=== PATIENT | female | born 1940 | race Caucasian/White ===

== ENCOUNTER 2017-02-03 05:35 | Inpatient (IN) ==
[2017-01-27 13:45] LABS: Basophils % 0.6 % (0.0-0.8); Eosinophils # 0.3 10*3/uL (0.0-0.87); Eosinophils % 3.8 % (0.00-10.9); Hematocrit 34.8 VOL% (35.7-47.0); Hemoglobin 11.1 GM/DL (12.0-16.0); Immature Granulocytes % 0.4 %; Immature Granulocytes Absolute 0.03 #; Lymphocytes # 1.2 10*3/uL (1.4-4.0); Mean Corpuscular HGB Conc 31.9 GM/DL (32-36); Mean Corpuscular Hemoglobin 28 PG (27-34); Mean Corpuscular Volume 86.8 FL (87-102); Mean Platelet Volume 10.3 FL (9.6-12.0); Monocytes # 0.6 10*3/uL (0.11-0.8); Neutrophils % 70.2 % (38.7-73.9); Platelet Count 237 T/CUMM (130-400); Red Blood Count 4.01 MC/CUMM (3.8-5.5); Red Cell Distribution Width 14.2 % (9.3-17.3); White Blood Count 7.1 T/CUMM (4-12)
[2017-01-27 13:52] LABS: PT Patient Result 10.3 SECS; Partial Thromboplastin Time 25.9 SECS (0-40)
[2017-01-27 13:56] LABS: Apearance,Urine Slightly Hazy (Clear); Bacteria,Urine Moderate /HPF (Few); Bilirubin,Urine Negative (Negative); Blood, Urine Negative (Negative); Glucose,Urine (UA) 50 mg/dL (Negative); Ketones,Urine Negative (Negative); Nitrite,Urine Negative (Negative); Protein,Urine 100 MG/DL; RBC,Urine <1 /HPF (0-4); Squamous Epithelial Cell,Urine Occasional /HPF (0-10); Urine Color Yellow (Yellow); Urine Specific Gravity 1.008 (1.001-1.035); Urine Urobilinogen < 2.0 EU/DL (0.2-1.0); WBC,Urine 3 /HPF (0-6)
--- NOTE | 2017-01-27 14:02 | XRay Report ---
XR chest 2V Indication: Respiratory preoperative evaluation Comparison: 07 March 2014 Findings: The heart and mediastinum are normal in size and configuration. The pulmonary vascularity is normal in caliber. No lung infiltrates, effusions, pneumothorax or other abnormality is demonstrated. Impression: No cardiopulmonary disease. PROCEDURE INTERPRETED AT [facility] DEPARTMENT OF RADIOLOGY Final Report Signed by: Dr. Rich Tesfaye
[2017-01-27 14:15] LABS: Albumin 3.4 G/DL (3.4-5.0); Bilirubin,Total 0.4 MG/DL (0.2-1.0); Calcium 9.2 MG/DL (8.5-10.1); Potassium 4.3 MMOL/L (3.5-5.1); Total Protein 6.6 G/DL (6.4-8.3)
[2017-02-03] MEDS ORDERED: SODIUM CHLORIDE 0.9% 100 ML IV ONE (06:00)
[2017-02-03] MEDS ORDERED: ceFAZolin 1,000 MG VIAL ONE (06:00)
[2017-02-03] MEDS ORDERED: VANCOMYCIN 1,000 MG VIAL ONE (06:00)
[2017-02-03] MEDS ORDERED: VANCOMYCIN INJ 1,000 MG in SODIUM CHLORIDE 0.9% 250 ML IV ONE (06:00)
[2017-02-03] MEDS ORDERED: TRANEXAMIC ACID 1,000 MG/10 ML VIAL IV ONE (06:29)
[2017-02-03] MEDS ORDERED: SCOPOLAMINE 1.5 MG PATCH TRANSDERM ONE (06:45)
[2017-02-03] MEDS ORDERED: SCOPOLAMINE 1.5 MG PATCH TRANSDERM STA (06:55)
[2017-02-03] MEDS: LACTATED RINGERS 1,000 ML IV SCH ×2 (06:55→08:31)
--- NOTE | 2017-02-03 07:07 | History and Physical Update ---
History and Physical Update - History and Physical H&P was reviewed, the patient examined and there: are no changes in the patients condition since last H&P was completed.
[2017-02-03] MEDS ORDERED: TEMAZEPAM 7.5 MG CAPSULE PO PRN (07:10)
[2017-02-03] MEDS ORDERED: NALOXONE 0.4 MG/ML VIAL IV PRN (07:10)
[2017-02-03] MEDS ORDERED: LACTULOSE 20 GM/30 ML UDCUP PO PRN (07:10)
[2017-02-03] MEDS ORDERED: BISACODYL 10 MG SUPP RECTAL PRN (07:10)
[2017-02-03] MEDS ORDERED: HYDROmorphone 2 MG/1 ML VIAL IV PRN (07:10)
[2017-02-03] MEDS ORDERED: PROMETHAZINE 25 MG/1 ML VIAL IM PRN (07:10)
[2017-02-03] MEDS ORDERED: diphenhydrAMINE CAP 25 MG CAPSULE PO PRN (07:10)
[2017-02-03] MEDS ORDERED: MAGNESIUM HYDROXIDE SUSP 30 ML UDCUP PO PRN (07:10)
[2017-02-03] MEDS ORDERED: GLUCAGON 1 MG VIAL IM PRN (07:14)
[2017-02-03] MEDS ORDERED: DEXTROSE 50% 25 GM/50 ML VIAL IV PRN (07:14)
[2017-02-03] MEDS ORDERED: ROPIVACAINE 0.5% 30 ML VIAL ONE (08:42)
[2017-02-03] MEDS ORDERED: PROPOFOL 200 MG/20 ML VIAL IV ONE (08:49)
[2017-02-03] MEDS ORDERED: MIDAZOLAM 2 MG/2 ML VIAL ONE (08:49)
[2017-02-03] MEDS ORDERED: NEOSTIGMINE 10 MG/10 ML VIAL ONE (08:49)
[2017-02-03] MEDS ORDERED: LACTATED RINGERS 1,000 ML IV ONE (08:49)
[2017-02-03] MEDS ORDERED: HYDROmorphone 2 MG/1 ML VIAL ONE (08:49)
[2017-02-03] MEDS ORDERED: ACETAMINOPHEN 1,000 MG/100 ML VIAL IV ONE (08:49)
[2017-02-03] MEDS ORDERED: SEVOFLURANE 1 UNIT/15 MINUTE INH ONE (08:49)
[2017-02-03] MEDS ORDERED: GLYCOPYRROLATE 0.4 MG/2 ML VIAL ONE (08:49)
[2017-02-03] MEDS ORDERED: ROCURONIUM 100 MG/10 ML VIAL IV ONE (08:50)
[2017-02-03] MEDS ORDERED: HYDROmorphone PCA 30 MG/30 ML SYRINGE IV ONE (09:26)
[2017-02-03] MEDS: HYDROmorphone PCA 30 MG/30 ML SYRINGE IV SCH (09:31)
--- NOTE | 2017-02-03 09:43 | XRay Report ---
XR knee 2V LT Indication: Joint replacement (left knee) Comparison: Left knee x-ray December 24, 2007 Technique: Frontal and lateral views of the left knee Findings: Status post total left knee arthroplasty. No evidence of immediate hardware failure. Superficial skin lul and surgical drain/s overlie the knee. Subcutaneous and joint space air noted which is likely postoperative. IMPRESSION: Status post total left knee arthroplasty. PROCEDURE INTERPRETED AT [facility] DEPARTMENT OF RADIOLOGY Final Report Signed by: Dr Petar Bunn
[2017-02-03] MEDS: DOCUSATE SODIUM 100 MG CAPSULE PO SCH ×3 (10:12→21:00)
[2017-02-03] MEDS: INSULIN REGULAR 100 UNIT/ML SUBCUT SCH ×6 (10:12→21:54)
[2017-02-03] MEDS: METHENAMINE HIPPURATE 1 GM TABLET PO SCH ×3 (10:13→21:00)
[2017-02-03] MEDS: INSULIN NPH 100 UNIT/ML SUBCUT SCH ×2 (10:13→18:03)
[2017-02-03] MEDS: FUROSEMIDE 20 MG TABLET PO SCH (10:13)
[2017-02-03] MEDS: FOLIC ACID 1 MG TABLET PO SCH (10:13)
[2017-02-03] MEDS: ceFAZolin 2,000 MG in PREMIX 1 EACH IV SCH ×2 (11:33→20:51)
--- NOTE | 2017-02-03 12:00 | Anesthesia Post-Op ---
Anesthesia Post OP - Post Ansesthetic Evaluation Patient seen in post op: Yes Resp: within normal limits CV: within normal limits Mental: within normal limits Temp: within normal limits Iomd-Ta-Gjaqurmdd: within normal limits Nausea and Vomiting: within normal limits Pain: within normal limits
--- NOTE | 2017-02-03 14:05 | Orthopedic Progress Note ---
Orthopedics - Subjective Interval history: Comfortable neurovascular intact discussed up in a.m. Exam - Constitutional Vitals: Period Temp Pulse Resp BP Sys/Mccann Pulse Ox Last 24 Hr 97.4 F-99.1 F 60-75 13-20 123-144/46-79 94-100 Results - Labs CBC & BMP: 01/27/17 13:32 01/27/17 13:32
--- NOTE | 2017-02-03 15:18 | Cardiology Consult Note ---
Lashawn De La Paz April RN, am scribing for, and in the presence of, Liliya Leonard DO 15 :15. Assessment and Plan - Time spent with patient Time spent with patient: Greater than 30 minutes (Due to assessment, planning, documentation, medication review) (1) Status post total left knee replacement Status: Acute Assessment and plan: She has a left total knee replacement February 03, [address] Parker Hernandez. Current Visit: Yes (2) Diabetes mellitus Status: Chronic Current Visit: Yes Qualifiers: Diabetes mellitus type: type 2 Diabetes mellitus complication detail: with chronic kidney disease Chronic kidney disease stage: stage 2 (mild) (3) Chronic kidney disease Status: Chronic Current Visit: Yes (4) Hypertension Status: Chronic Current Visit: Yes (5) GERD (gastroesophageal reflux disease) Status: Chronic Current Visit: Yes Qualifiers: Esophagitis presence: without esophagitis Qualified Code(s): K21.9 - Gastro -esophageal reflux disease without esophagitis (6) Dyslipidemia Status: Chronic Current Visit: Yes (7) COPD (chronic obstructive pulmonary disease) Status: Chronic Current Visit: Yes (8) Heart failure with preserved left ventricular function (HFpEF) Status: Acute Current Visit: Yes History of Present Illness - Data of Consult Patient: known to practice within the last 3 years Consult date: 02/03/17 Requesting Physician: Robbie Canales Jr. Primary care physician: Teo Gonzales - Consult Narrative Reason for consult: follow postop History of present illness: Equity Structurer: Dr. Mensah PCP: Dr. Goznales Ms. Tejeda is a 76 year old female with history of diabetes, chronic kidney disease, hypertension, GERD, COPD, and dyslipidemia. Dr. Mensah saw her in the office on December 27. She had a stress test Dr. Mensah's office January 16, 2017 was read as probably normal perfusion study and low risk for cardiovascular events. Echocardiogram done December 31, 2016 with ejection fraction of 55%. She was low risk for shayy-/post operative cardiac events. Patient has no known coronary artery disease cardiac dysrhythmia has never been admitted for heart failure signs or symptoms. She was admitted February 03 for left total knee replacement with Dr. Parker Hernandez. We have been asked see her postoperatively. I saw and examined with Hardin post total knee replacement. She denies any chest pain or shortness of breath. Vital signs have been stable. Home medicines have been restarted. She seems to be doing well postoperatively. We will follow from a distance. If there are issues please notify us in the interim I will continue her home medications. I will sign off at this point please call if needed. CC: Robbie Canales Jr., MD - Home Medications and Allergies Home Medications: Home Medications Medication Instructions Recorded Confirmed Type Atorvastatin [Lipitor] 10 mg PO BEDTIME 04/06/15 02/03/17 History Carvedilol [Coreg] 12.5 mg PO BID 04/06/15 02/03/17 History Folic Acid Tab 1 mg PO DAILY 04/06/15 02/03/17 History Furosemide Tab [Lasix Tab] 20 mg PO DAILY 04/06/15 02/03/17 History Gabapentin 300 mg PO BEDTIME 04/06/15 02/03/17 History Insulin NPH [HumuLIN N] 33 unit SUBCUT QPM 04/06/15 02/03/17 History Insulin NPH [HumuLIN N] 50 unit SUBCUT QAM 04/06/15 02/03/17 History Insulin Regular [HumuLIN R] 15 unit SUBCUT BID 04/06/15 02/03/17 History amLODIPine [Norvasc] 10 mg PO BEDTIME 04/06/15 02/03/17 History Esomeprazole Magnesium 40 mg PO DAILY 02/03/17 02/03/17 History [Esomeprazole] Methenamine Hippurate 1 gm PO BID 02/03/17 02/03/17 History Allergies/Adverse Reactions: Allergies Allergy/AdvReac Type Severity Reaction Status Date / Time aspirin Allergy Intermediate SWELLING Verified 01/27/17 13:02 IN HIGHER DOSAGES meperidine [From Demerol] AdvReac Mild Nausea Verified 01/27/17 13:02 morphine AdvReac Mild Nausea Verified 01/27/17 13:02 - Constitutional Constitutional: Present: as per HPI - EENT Eyes: Absent: blurry vision, loss of vision Ears: Absent: decreased hearing, ear pain Nose, mouth and throat: Absent: dysphagia, epistaxis, headache(s) - Cardiovascular Cardiovascular: Absent: chest pain at rest, chest pain with activity, dyspnea, dyspnea on exertion, radiating jaw, neck or arm pain, lightheadedness, orthopnea , palpitations - Respiratory Respiratory: Absent: cough, dyspnea, hemoptysis, dyspnea on exertion, wheezing - Gastrointestinal Gastrointestinal: Absent: abdominal pain, constipation, diarrhea, hematemesis, hematochezia, melena, nausea, vomiting - Genitourinary Genitourinary: Absent: dysuria, hematuria - Musculoskeletal Musculoskeletal: Present: limited range of motion, muscle weakness - Neurological Neurological: Present: abnormal gait. Absent: confusion, dizziness, headache(s) , syncope - Psychiatric Psychiatric: Absent: anxiety, depression - Endocrine Endocrine: Present: fatigue - Hematologic/Lymphatic Hematologic/Lymphatic: Absent: easy bleeding, easy bruising Medical,Surgical,& Family Hx - Medical History Cardio: History of: Hypertension Neurology: History of: Peripheral Neuropathy HEENT: History of: Eye Problem (cataract surg), Dental Problems (FULL SET DENTURES) Endocrine: History of: Diabetes Mellitus (IDDM), Dyslipidemia Rheumatology: History of;: Rheumatological Problems (arthritis) Respiratory: History of: COPD Renal: History of: Renal Problems (chronic renal disease-DR. BROOKS LOPEZ BETTER NOW) Gastrointestinal: History of: Diverticulitis/ Diverticulosis, GERD Musculoskeletal: History of: Back/Neck Problems (stimulator in back; HX SEEING DR. ZHENG), Musculoskeletal Problems (OA) Other: History of: Anesthesia Reactions (nauseated) - Surgical History HEENT Surgeries: Surgical HX of: Eye Surgery (RT/LT) Patient denies: Tonsilectomy & Adenoidectomy Abdominal Surgeries: Surgical HX of: Cholecystectomy, Colonoscopy, EGD Reproductive Surgeries: Surgical HX of;: Hysterectomy, Tubal Ligation (RUPTURED CYST RT; LT) Orthopedic Surgeries: Surgical HX of;: Implanted Devices (SCS), Orthopedic Surgery (right knee, ankle fusion LT), Total Knee Replacement (right; 02/03/17 LT ) - Family History Family History: Reports;: Family Cancer (sister) - Social History Smoking Status: Never smoker Have you smoked in the last 12 months: No Frequency of Alcohol Use: None Type of Drug Use: Unknown Marital Status: Lives With:: Spouse Functional capacity: independent ambulation Physical Examination Vital Signs Temp Pulse Resp BP Pulse Ox 97.4 F L 70 20 143/79 97 02/03/17 06:28 02/03/17 06:28 02/03/17 06:28 02/03/17 06:28 02/03/17 06:28 General: Present: Appears Well, No Apparent Distress, Other (She is obese with BMI of 37 kg/m2) HEENT: Present: PERRL, Mucus Membranes Moist Neck: Present: Supple Neck, Midline Trachea, No Bruit Cardiac: Present: Reg Rate and Rhythm, No Murmur Lungs: Present: Normal Breath Sounds, No Wheeze, Rales, Rhonchi Neuro: Absent: Resting Tremor, Essential Tremor Abdomen: Present: Soft, Active Bowel Sounds, Non-Tender. Absent: Distended Skin: Absent: Rash, Suspicious Lesions Musculoskeletal: Present: Decreased Range of Motion, Pain in Joint Gait: Present: Poor Gait Extremities: Present: No Edema, Normal Upper Extr. Pulses, Normal Lower Extr. Pulses, Other (Dressing to left lower extremity) Result/EKG - Labs CBC & BMP: 01/27/17 13:32 01/27/17 13:32 Labs: Laboratory Results - last 24 hr 02/03/17 02/03/17 02/03/17 06:22 06:22 10:40 POC Glucose 143 H 158 H Blood Type A POSITIVE Antibody Screen Negative Aisha De La Paz Shea, , personally performed the services described in this documentation, ascribed by Joanna Hardin RN in my presence, and it is both accurate and complete .
[2017-02-03] MEDS: FONDAPARINUX 2.5 MG/0.5 ML SYRINGE SUBCUT SCH (17:07)
[2017-02-03] MEDS: ONDANSETRON 4 MG/2 ML VIAL IV PRN ×2 (17:31→21:11)
[2017-02-03] MEDS: GABAPENTIN 300 MG CAPSULE PO SCH ×2 (20:51→21:00)
[2017-02-03] MEDS: CARVEDILOL 12.5 MG TABLET PO SCH ×2 (20:51→21:00)
[2017-02-03] MEDS: amLODIPine 10 MG TABLET PO SCH ×2 (20:51→21:00)
[2017-02-03] MEDS: ATORVASTATIN 10 MG TABLET PO SCH ×2 (20:51→21:00)
--- NOTE | 2017-02-03 21:23 | Operative Note ---
DATE: 02/03/2017 PREOPERATIVE DIAGNOSIS: OSTEOARTHRITIS, LEFT KNEE. POSTOPERATIVE DIAGNOSIS: OSTEOARTHRITIS, LEFT KNEE. OPERATIVE PROCEDURE: Left total knee ([place]). SURGEON: Robbie Canales Jr., MD. ENGAGEMENT EXECUTIVE: Dr. Toribio. ANESTHESIA: General. INDICATIONS: The patient is a 76-year-old white female with severe osteoarthritis to her left knee. She has previously had a right total knee and done very well. Her pain is severe limiting her abili ty to ambulate and perform activities of daily living. She is felt to be a candidate for total knee, presented today for elective procedure. OPERATIVE PROCEDURE: The patient was taken to the operating room under general anesthetic, positione d in the supine position. The left leg was positioned, prepped and draped in usual sterile manner. The limb was elevated, exsanguinated, and the tourniquet inflated to 300 mmHg. She received Ancef an d Vancomycin preoperatively. A midline incision was made over the anterior aspect of the left knee. Sharp dissection was carried down through skin and subcutaneous tissue. A median parapatellar arthr otomy performed. Intramedullary alignment guides were used to make the appropriate cuts about the di stal femur and proximal tibia. The femur was sized to an 8 and the tibia to a 9. A 7-mm fixed beari ng spacer selected, the PCL retained. The patella was resurfaced with a 35 button. After removal of all the trial components, all three components were cemented into place. After the cement hardened, the wound was closed over two 1/8-inch Hemovac drains after a thorough irrigation. The wound was cl osed in standard fashion using #1 Vicryl for the arthrotomy, 2-0 Vicryl for the subcutaneous layer an d lul for skin. Tourniquet was deflated during wound closure at 40 minutes. Sterile dressing wa s applied. She was transported to recovery room in stable condition. CC:
[2017-02-04] MEDS: LACTATED RINGERS 1,000 ML IV SCH ×2 (03:13→23:06)
[2017-02-04 07:19] LABS: Basophils % 0.2 % (0.0-0.8); Hematocrit 31.6 VOL% (35.7-47.0); Immature Granulocytes % 0.4 %; Immature Granulocytes Absolute 0.05 #; Lymphocytes # 0.7 10*3/uL (1.4-4.0); Mean Corpuscular HGB Conc 31.6 GM/DL (32-36); Mean Corpuscular Hemoglobin 28 PG (27-34); Mean Corpuscular Volume 88.3 FL (87-102); Mean Platelet Volume 11.2 FL (9.6-12.0); Monocytes # 0.6 10*3/uL (0.11-0.8); Monocytes % 5.4 % (1.7-12.7); Neutrophils # 9.8 10*3/uL (1.4-7.4); Platelet Count 178 T/CUMM (130-400); Red Blood Count 3.58 MC/CUMM (3.8-5.5); Red Cell Distribution Width 14.4 % (9.3-17.3); White Blood Count 11.2 T/CUMM (4-12)
[2017-02-04 07:37] LABS: Calcium 8.4 MG/DL (8.5-10.1); Osmolality,Calculated 302.1 MOS/KG (273-304); Potassium 4.3 MMOL/L (3.5-5.1)
--- NOTE | 2017-02-04 08:06 | Orthopedic Progress Note ---
Orthopedics - Subjective Interval history: Pain control good drain removed H&H stable. Ready to start PT. Discharge plan Exam - Constitutional Vitals: Period Temp Pulse Resp BP Sys/Mccann Pulse Ox Last 24 Hr 97.3 F-99.1 F 60-99 13-20 123-162/46-85 92-100 Results - Labs CBC & BMP: 02/04/17 07:00 02/04/17 07:00
[2017-02-04] MEDS: INSULIN REGULAR 100 UNIT/ML SUBCUT SCH ×6 (08:30→20:42)
[2017-02-04] MEDS: INSULIN NPH 100 UNIT/ML SUBCUT SCH ×2 (08:41→20:41)
[2017-02-04] MEDS: DOCUSATE SODIUM 100 MG CAPSULE PO SCH ×2 (08:44→20:41)
[2017-02-04] MEDS: FOLIC ACID 1 MG TABLET PO SCH (08:46)
[2017-02-04] MEDS: METHENAMINE HIPPURATE 1 GM TABLET PO SCH ×2 (08:46→20:41)
[2017-02-04] MEDS: FUROSEMIDE 20 MG TABLET PO SCH (08:47)
--- NOTE | 2017-02-04 08:57 | Physician Query Form ---
CLICK EDIT DOCUMENT TO SELECT QUERY ANSWER --> OK --> SIGN Ashley Bowles RN, CCDS Certified Clinical Seed Technician W) [phone] (f) [phone] [email or web address] PROVIDERS: Make your selection(s) from the choices in EACH section by typing an "x" and enter comments in the comment section. Please use your independent medical judgment in providing your response. This request does not imply that any particular answer is desired or expected. CLINICAL INDICATORS: (Providers should not edit this section) The medical record indicates that the patient was admitted post knee surgery, "Echocardiogram done December 31, 2016 with ejection fraction of 55%", "Heart failure with preserved left ventricular function (HFpEF)" and the patient is on Coreg/ Lasix. Based on a history of CHF, can you please clarify the type of CHF that is being monitored? Please provide further specificity regarding CHF. TYPE: ( ) Systolic (HFrEF - heart failure with reduced systolic function/EF) ( ) Diastolic (HFpEF - heart failure with preserved systolic function/EF) ( ) Combined Systolic/Diastolic ( ) Other, please specify: ( ) Clinically unable to determine ( ) Past Medical History of Systolic CHF ( ) Past Medical History of Diastolic CHF ( ) Clinically unable to determine COMMENTS: PLEASE ALSO DOCUMENT RESPONSE IN PROGRESS NOTES AND/OR DISCHARGE SUMMARY Use of terms such as suspected, likely, or probable (associated with a specific diagnosis that is being evaluated, monitored, or treated as if it exists) are acceptable and can be restated in the discharge summary if not ruled out. MTDD
--- NOTE | 2017-02-04 09:12 | Physician Query Form ---
CLICK EDIT DOCUMENT TO SELECT QUERY ANSWER --> OK --> SIGN Ashley Bowles RN, CCDS Certified Clinical Director Transportation W) [phone] (f) [phone] [email or web address] PROVIDERS: Make your selection(s) from the choices in EACH section by typing an "x" and enter comments in the comment section. Please use your independent medical judgment in providing your response. This request does not imply that any particular answer is desired or expected. CLINICAL INDICATORS: (Providers should not edit this section) The medical record indicates that the patient was admitted post knee surgery, "Echocardiogram done December 31, 2016 with ejection fraction of 55%", "Heart failure with preserved left ventricular function (HFpEF)" and the patient is on Coreg/ Lasix. Please provide further specificity regarding CHF. TYPE: ( ) Systolic (HFrEF - heart failure with reduced systolic function/EF) (x) Diastolic (HFpEF - heart failure with preserved systolic function/EF) ( ) Combined Systolic/Diastolic ( ) Other, please specify: ( ) Clinically unable to determine ( ) Past Medical History of Systolic CHF ( ) Past Medical History of Diastolic CHF ( ) Clinically unable to determine COMMENTS:This is verbatim what is "documented in the chart". PLEASE ALSO DOCUMENT RESPONSE IN PROGRESS NOTES AND/OR DISCHARGE SUMMARY Use of terms such as suspected, likely, or probable (associated with a specific diagnosis that is being evaluated, monitored, or treated as if it exists) are acceptable and can be restated in the discharge summary if not ruled out. MTDD
--- NOTE | 2017-02-04 11:18 | Pathology Report from [facility] ---
[facility] : [id number] PATIENT NAME : Swati Awad ORDERING DR : ANDRÉS ESPINAL JR, MD CLINICAL HX: LT knee osteoarthritis POST-OP DX: Same SPECIMEN INFO: LT knee bone & tissue GROSS DESCRIPTION: Received in formalin labeled SWATI AWAD are multiple fragments of bone, soft tissue and cartilage measuring 14.0 x 7.0 cm in aggregate. The articular surfaces are focally degenerative with areas of subchondral eburnation seen. Business Banking Manager tissue is submitted in one cassette. DIAGNOSIS FOR SWATI AWAD: LEFT KNEE, TOTAL REPLACEMENT: Fragments of cartilage and bone with degenerative/reactive changes c/w osteoarthritis. COLLECTED DATE: 02/03/2017 [facility] REPORT DATE: 02/04/2017 ELECTRONICALLY SIGNED BY: Amaya Reveles M.D. 02/04/2017 - 9:55:25 MTDD
[2017-02-04] MEDS: HYDROmorphone PCA 30 MG/30 ML SYRINGE IV SCH (11:26)
[2017-02-04] MEDS: FONDAPARINUX 2.5 MG/0.5 ML SYRINGE SUBCUT SCH (18:45)
[2017-02-04] MEDS: CARVEDILOL 12.5 MG TABLET PO SCH (20:41)
[2017-02-04] MEDS: ATORVASTATIN 10 MG TABLET PO SCH (20:41)
[2017-02-04] MEDS: amLODIPine 10 MG TABLET PO SCH (20:41)
[2017-02-04] MEDS: GABAPENTIN 300 MG CAPSULE PO SCH (20:41)
[2017-02-05 04:03] LABS: Basophils % 0.1 % (0.0-0.8); Eosinophils % 0.1 % (0.00-10.9); Hematocrit 29.1 VOL% (35.7-47.0); Hemoglobin 9.2 GM/DL (12.0-16.0); Immature Granulocytes % 0.5 %; Immature Granulocytes Absolute 0.07 #; Lymphocytes # 1.1 10*3/uL (1.4-4.0); Lymphocytes % 7.9 % (21.3-54.2); Mean Corpuscular HGB Conc 31.6 GM/DL (32-36); Mean Corpuscular Hemoglobin 28 PG (27-34); Mean Corpuscular Volume 86.9 FL (87-102); Mean Platelet Volume 11.3 FL (9.6-12.0); Monocytes # 1.2 10*3/uL (0.11-0.8); Monocytes % 9.2 % (1.7-12.7); Neutrophils % 82.2 % (38.7-73.9); Platelet Count 198 T/CUMM (130-400); Red Blood Count 3.35 MC/CUMM (3.8-5.5); Red Cell Distribution Width 14.6 % (9.3-17.3); White Blood Count 13.5 T/CUMM (4-12)
[2017-02-05 04:35] LABS: Calcium 8.9 MG/DL (8.5-10.1); Osmolality,Calculated 290.3 MOS/KG (273-304); Potassium 3.8 MMOL/L (3.5-5.1)
[2017-02-05] MEDS: METHENAMINE HIPPURATE 1 GM TABLET PO SCH ×2 (08:38→21:49)
[2017-02-05] MEDS: FOLIC ACID 1 MG TABLET PO SCH (08:38)
[2017-02-05] MEDS: FUROSEMIDE 20 MG TABLET PO SCH (08:38)
[2017-02-05] MEDS: INSULIN REGULAR 100 UNIT/ML SUBCUT SCH ×6 (08:39→23:12)
[2017-02-05] MEDS: DOCUSATE SODIUM 100 MG CAPSULE PO SCH ×2 (08:39→21:50)
[2017-02-05] MEDS: INSULIN NPH 100 UNIT/ML SUBCUT SCH ×2 (08:40→18:16)
--- NOTE | 2017-02-05 10:29 | Orthopedic Progress Note ---
Orthopedics - Subjective Interval history: Comfortable H&H stable hemoglobin 9. Mobilize with PT home to home health most likely Friday possible tomorrow Exam - Constitutional Vitals: Period Temp Pulse Resp BP Sys/Mccann Pulse Ox Last 24 Hr 97.1 F-98.9 F 80-88 17-19 132-165/58-76 89-92 Results - Labs CBC & BMP: 02/05/17 02:54 02/05/17 02:54 Specialty Discharge - Follow Up or Referrals Follow up with: Robbie Canales Jr., MD [Physician] -
[2017-02-05] MEDS: FONDAPARINUX 2.5 MG/0.5 ML SYRINGE SUBCUT SCH (18:16)
[2017-02-05] MEDS: CARVEDILOL 12.5 MG TABLET PO SCH (21:50)
[2017-02-05] MEDS: GABAPENTIN 300 MG CAPSULE PO SCH (21:50)
[2017-02-05] MEDS: amLODIPine 10 MG TABLET PO SCH (21:51)
[2017-02-05] MEDS: ATORVASTATIN 10 MG TABLET PO SCH (21:51)
--- NOTE | 2017-02-06 08:29 | Orthopedic Progress Note ---
Orthopedics - Subjective Interval history: Comfortable tolerating PT well will plan on home discharge tomorrow after another day of inpatient therapy. Agrees Exam - Constitutional Vitals: Period Temp Pulse Resp BP Sys/Mccann Pulse Ox Last 24 Hr 97.2 F-99.1 F 78-89 17-20 147-165/65-84 90-94 Results - Labs CBC & BMP: 02/05/17 02:54 02/05/17 02:54 Specialty Discharge - Follow Up or Referrals Follow up with: Robbie Canales Jr., MD [Physician] -
[2017-02-06] MEDS: INSULIN NPH 100 UNIT/ML SUBCUT SCH ×2 (09:56→18:17)
[2017-02-06] MEDS: INSULIN REGULAR 100 UNIT/ML SUBCUT SCH ×6 (09:56→22:09)
[2017-02-06] MEDS: FOLIC ACID 1 MG TABLET PO SCH (09:57)
[2017-02-06] MEDS: DOCUSATE SODIUM 100 MG CAPSULE PO SCH ×2 (09:57→20:54)
[2017-02-06] MEDS: FUROSEMIDE 20 MG TABLET PO SCH (09:57)
[2017-02-06] MEDS: METHENAMINE HIPPURATE 1 GM TABLET PO SCH ×2 (09:57→20:53)
[2017-02-06] MEDS: FONDAPARINUX 2.5 MG/0.5 ML SYRINGE SUBCUT SCH (17:11)
[2017-02-06] MEDS: GABAPENTIN 300 MG CAPSULE PO SCH (20:53)
[2017-02-06] MEDS: CARVEDILOL 12.5 MG TABLET PO SCH (20:54)
[2017-02-06] MEDS: ATORVASTATIN 10 MG TABLET PO SCH (20:54)
[2017-02-06] MEDS: amLODIPine 10 MG TABLET PO SCH (20:54)
--- NOTE | 2017-02-07 07:18 | Discharge Summary ---
Hospital Course - Hospital Course Hospital Course: Admission for elective total knee discharged home with home health Diagnosis - Discharge Diagnosis (1) Osteoarthritis of left knee Status: Acute Specialty Discharge - Follow Up or Referrals Follow up with: Robbie Canales Jr., MD [Physician] - Discharge Plan - Discharge Data Disposition: Home Health Service Condition at Discharge: Stable Discharge Diet: advance to your usual diet Activity: ambulate only with your walker, as per physical therapy, increase activity as tolerated Hygiene: may shower, keep area(s) dry Weight Bearing at Discharge: weight bear as tolerated Driving: not until seen by doctor - Discharge Medications New HYDROcodone/ACETAMIN 7.5-325 [[place] 7.5-325] 2 tablet PO Q4H PRN #30 tablet PRN Reason: Moderate Pain unrelieved by 1 Continue Atorvastatin [Lipitor] 10 mg PO BEDTIME Insulin NPH [HumuLIN N] 33 unit SUBCUT QPM Insulin NPH [HumuLIN N] 50 unit SUBCUT QAM Furosemide Tab [Lasix Tab] 20 mg PO DAILY Insulin Regular [HumuLIN R] 15 unit SUBCUT BID Gabapentin 300 mg PO BEDTIME Folic Acid Tab 1 mg PO DAILY Carvedilol [Coreg] 12.5 mg PO BID amLODIPine [Norvasc] 10 mg PO BEDTIME Methenamine Hippurate 1 gm PO BID Esomeprazole Magnesium [Esomeprazole] 40 mg PO DAILY - Follow Up or Referral Follow Up: Robbie Canales Jr., MD [Physician] - - Forms/Instructions Instructions: Total Knee Replacement (DC) Additional Discharge Instructions: Discharged home with home health and home PT weightbearing as tolerated on the left with walker CPM. Guillermo for pain continue home medications including her baby aspirin is normal. Pollo will be removed and wound Steri-Stripped February 17. She will follow-up me in 4 weeks Exam - Constitutional Vitals: Period Temp Pulse Resp BP Sys/Mccann Pulse Ox Last 24 Hr 97.0 F-98.6 F 67-84 17-20 127-162/52-72 92-97 Discharge Results Labs on day of discharge: Labs from last 24 hours 02/07/17 02/07/17 02/07/17 06:56 01:22 00:14 POC Glucose 230 H 180 H 55 L 02/06/17 02/06/17 02/06/17 20:47 16:37 11:17 POC Glucose 96 107 H 329 H 02/06/17 07:08 POC Glucose 230 H DS: Provider Date of admission: 02/03/17 05:35 Primary care physician: Teo Gonzales MD Attending physician on admission: Robbie Canales Jr., MD Consults: 02/03/17 07:10 Consult to Case Mgmt/Social Srvs [CONS] Routine Reason for Case Mgmt/Social Srvs: Rehab Home Health Equipment Consult Comment: Deliver CPM machine room 317 before D/C f/home rehab. Consult to Occupational Therapy [CONS] Routine Reason for Occupational Therapy: Evaluate and Treat Consult Comment: ADL's Consult to Physical Therapy [CONS] Routine Reason for Physical Therapy: Evaluate and Treat Gait Training 02/03/17 14:18 Consult to Pastoral Services [CONS] Routine Comment: Pastoral Screen: Request Phone Banker Visit Pastoral Screen Source of Request: Family 02/04/17 10:36 Consult to Physical Therapy [CONS] Routine Reason for Physical Therapy: Other Consult Comment: Standard Walker w/2 wheels on front if Pt is approved to use at home Discharging clinician: Robbie Canales Jr., MD
[2017-02-07] MEDS: INSULIN REGULAR 100 UNIT/ML SUBCUT SCH ×3 (08:58→12:14)
[2017-02-07] MEDS: FOLIC ACID 1 MG TABLET PO SCH (08:59)
[2017-02-07] MEDS: FUROSEMIDE 20 MG TABLET PO SCH (08:59)
[2017-02-07] MEDS: METHENAMINE HIPPURATE 1 GM TABLET PO SCH (08:59)
[2017-02-07] MEDS: DOCUSATE SODIUM 100 MG CAPSULE PO SCH (08:59)
[2017-02-07] MEDS: INSULIN NPH 100 UNIT/ML SUBCUT SCH (09:00)
--- NOTE | 2017-02-07 09:31 | Orthopedic Progress Note ---
Assessment and Plan (1) Osteoarthritis of left knee Status: Acute Current Visit: Yes Orthopedics - Subjective Interval history: Comfortable tolerating PT instructed discussed home today Exam - Constitutional Vitals: Period Temp Pulse Resp BP Sys/Mccann Pulse Ox Last 24 Hr 97.0 F-98.6 F 67-84 17-20 127-162/52-72 90-97 Results - Labs CBC & BMP: 02/05/17 02:54 02/05/17 02:54 Specialty Discharge - Follow Up or Referrals Follow up with: Robbie Canales Jr., MD [Physician] -
[2017-02-07 10:56] VITALS: BP 144/55
== END 2017-02-07 13:20 | disposition home health service (06) | DRG 470 ==
LOC: N.SDSINP 05:35 → N.3E 08:03
PROVIDERS: ADMIT Orthopaedic Surgery; ATTEND Orthopaedic Surgery

== ENCOUNTER 2017-02-17 18:03 | Inpatient (IN) ==
[2017-02-17 19:33] LABS: Basophils % 0.2 % (0.0-0.8); Eosinophils # 0.2 10*3/uL (0.0-0.87); Eosinophils % 2.5 % (0.00-10.9); Hematocrit 32.3 VOL% (35.7-47.0); Hemoglobin 10.5 GM/DL (12.0-16.0); Immature Granulocytes % 0.4 %; Immature Granulocytes Absolute 0.04 #; Lymphocytes # 1.1 10*3/uL (1.4-4.0); Lymphocytes % 11.4 % (21.3-54.2); Mean Corpuscular HGB Conc 32.5 GM/DL (32-36); Mean Corpuscular Hemoglobin 28 PG (27-34); Mean Corpuscular Volume 86.4 FL (87-102); Mean Platelet Volume 10.3 FL (9.6-12.0); Monocytes # 0.6 10*3/uL (0.11-0.8); Monocytes % 5.9 % (1.7-12.7); Neutrophils # 7.7 10*3/uL (1.4-7.4); Neutrophils % 79.6 % (38.7-73.9); Platelet Count 285 T/CUMM (130-400); Red Blood Count 3.74 MC/CUMM (3.8-5.5); Red Cell Distribution Width 14.8 % (9.3-17.3); White Blood Count 9.6 T/CUMM (4-12)
--- NOTE | 2017-02-17 19:39 | XRay Report ---
Portable chest Exam date: 02/17/2017 7:17 PM Indication: Shortness of breath, cough Comparison: January 27, 2017 Findings: Cardiomediastinal contours are stable. Lungs are clear bilaterally. No acute osseous abnormalities. Visualized upper abdomen demonstrates no acute pathology. Impression: No acute cardiopulmonary findings PROCEDURE INTERPRETED AT [facility] DEPARTMENT OF RADIOLOGY Final Report Signed by: Marc Amin MD
--- NOTE | 2017-02-17 19:54 | XRay Report ---
Exam: XR knee 2V LT Exam date: 02/17/2017 7:22 PM Indication: Wound dehiscence Pain, Comparison: February 03, 2017 Findings: 3 component total knee arthroplasty in expected position and alignment. No evidence of hardware failure or periprosthetic osteopenia. No joint effusion. No radiographic soft tissue abnormalities. Impression: No radiographic abnormalities PROCEDURE INTERPRETED AT [facility] DEPARTMENT OF RADIOLOGY Final Report Signed by: Marc Amin MD
[2017-02-17] MEDS ORDERED: ceFAZolin 1,000 MG VIAL ONE (19:57)
[2017-02-17 20:01] LABS: Albumin 3.3 G/DL (3.4-5.0); Bilirubin,Total 0.4 MG/DL (0.2-1.0); Calcium 9.4 MG/DL (8.5-10.1); Magnesium 2.2 MG/DL (1.8-2.4); Osmolality,Calculated 289.4 MOS/KG (273-304); Potassium 3.5 MMOL/L (3.5-5.1); Total Protein 6.4 G/DL (6.4-8.3)
--- NOTE | 2017-02-17 20:15 | Emergency Department Note ---
Dustin De La Paz Jessica J, am scribing for, and in the presence of, Juan M Marion MD 19:24. Doni De La Paz Charles R, MD, personally performed the services described in this documentation, ascribed by Caitlyn Chan in my presence, and it is both accurate and complete . Arrival - Arrival Chief Complaint: Extremity Problem ED Nursing Triage Note: pt had a knee surgery 2 weeks ago and it busted open today. Mode of Arrival: Stretcher Limitations: No Limitations Source: Patient Time Seen by Provider: 02/17/17 18:31 - History of Present Illness HPI Narrative: Pt is a 76 y/o female, with a Hx of diabetes, who presents to the ED via EMS with a wound dehiscence of the right knee with an onset of this afternoon. Patient is 2 weeks post op patient of Dr. Eng. She states she had her lul removed today and went home. While she was using the bathroom she heard a loud pop and the wound had opened. She denies being on any blood thinners and antibiotics. No other complaints voiced in ED. Onset (ago): hour(s) Consistency: constant Severity: moderate Severity scale (1-10): 5 Quality: aching Allergies/Adverse Reactions: Allergies Allergy/AdvReac Type Severity Reaction Status Date / Time aspirin Allergy Intermediate SWELLING Verified 01/27/17 13:02 IN HIGHER DOSAGES meperidine [From Demerol] AdvReac Mild Nausea Verified 01/27/17 13:02 morphine AdvReac Mild Nausea Verified 01/27/17 13:02 Home Medications: Home Medications Medication Instructions Recorded Confirmed Type Atorvastatin [Lipitor] 10 mg PO BEDTIME 04/06/15 02/03/17 History Carvedilol [Coreg] 12.5 mg PO BID 04/06/15 02/03/17 History Folic Acid Tab 1 mg PO DAILY 04/06/15 02/03/17 History Furosemide Tab [Lasix Tab] 20 mg PO DAILY 04/06/15 02/03/17 History Gabapentin 300 mg PO BEDTIME 04/06/15 02/03/17 History Insulin NPH [HumuLIN N] 33 unit SUBCUT QPM 04/06/15 02/03/17 History Insulin NPH [HumuLIN N] 50 unit SUBCUT QAM 04/06/15 02/03/17 History Insulin Regular [HumuLIN R] 15 unit SUBCUT BID 04/06/15 02/03/17 History amLODIPine [Norvasc] 10 mg PO BEDTIME 04/06/15 02/03/17 History Esomeprazole Magnesium 40 mg PO DAILY 02/03/17 02/03/17 History [Esomeprazole] Methenamine Hippurate 1 gm PO BID 02/03/17 02/03/17 History HYDROcodone/ACETAMIN 7.5-325 2 tablet PO Q4H PRN #30 tablet 02/07/17 Rx [[place] 7.5-325] Review of System - Review of System 12 point system: reviewed and no additional remarkable complaints except as stated - Review of System Constitutional: Absent: chills, fever Eyes: Absent: vision change Cardiovascular: Absent: chest pain Gastrointestinal: Absent: abdominal pain, nausea, vomiting Musculoskeletal: Present: leg pain Skin: Present: other (open wound on right knee ) Psychiatric: Absent: anxiety Medical,Surgical,& Family Hx - Medical History Cardio: History of: CHF, Hypertension, 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 BROOKS LOPEZ BETTER NOW) Gastrointestinal: History of: Diverticulitis/ Diverticulosis, GERD Musculoskeletal: History of: Back/Neck Problems (stimulator in back; HX SEEING DR. ZHENG), Musculoskeletal Problems (OA) Other: History of: Anesthesia Reactions (nauseated) No history of: Cancer - Surgical History HEENT Surgeries: Surgical HX of: Eye Surgery (RT/LT) Patient denies: Tonsilectomy & Adenoidectomy Abdominal Surgeries: Surgical HX of: Cholecystectomy, Colonoscopy, EGD Reproductive Surgeries: Surgical HX of;: Hysterectomy, Tubal Ligation (RUPTURED CYST RT; LT) Orthopedic Surgeries: Surgical HX of;: Implanted Devices (SCS), Orthopedic Surgery (right knee, ankle fusion LT), Total Knee Replacement (right; 02/03/17 LT ) - Family History Family History: Reports;: Family Cancer (sister) - Social History Smoking Status: Never smoker Frequency of Alcohol Use: None Type of Drug Use: None Exam Vital Signs: Vital Signs Temperature 97.8 F 02/17/17 18:08 Pulse Rate 72 02/17/17 18:08 Respiratory Rate 18 02/17/17 18:08 Blood Pressure 155/59 02/17/17 18:08 O2 Sat by Pulse Oximetry 98 02/17/17 18:08 - General General appearance: alert, in no apparent distress - Head Head exam: Present: atraumatic, normocephalic - Eye Eye exam: Present: normal appearance, PERRL, EOMI - ENT ENT exam: Present: normal exam, normal oropharynx, mucous membranes moist. Absent: mucous membranes dry - Neck Neck exam: Present: normal inspection, full ROM, trachea midline - Chest Chest inspection: Present: normal inspection, symmetric chest wall rise - Respiratory Respiratory exam: Present: normal lung sounds bilaterally. Absent: respiratory distress - Cardiovascular Cardiovascular exam: Present: regular rate, normal rhythm, normal heart sounds - Abdominal Exam Abdominal exam: Present: soft, normal bowel sounds. Absent: distention, tenderness - Extremities Exam Extremities exam: Present: other (Right leg pain ) - Back Exam Back exam: Present: normal inspection, full ROM. Absent: tenderness - Neurological Exam Neurological exam: Present: alert, oriented X3, CN II-XII intact - Psychiatric Psychiatric exam: Present: normal affect, normal mood - Skin Skin exam: Present: warm, dry, other (wound dehiscience of right knee ). Absent : intact Course - Consultations Consultation #1: Dr. Parker Hernandez admit patient to the hospital he will close this in the morning Time: 20:13 Results - Labs CBC & BMP: 02/17/17 19:26 02/17/17 19:26 Lab Results: I have reviewed the patients labs Labs: Laboratory Tests 02/17/17 02/17/17 19:26 19:26 WBC 9.6 RBC 3.74 L Hgb 10.5 L Hct 32.3 L MCV 86.4 L Plt Count 285 Neut % (Auto) 79.6 H Lymph % (Auto) 11.4 L Neut # (Auto) 7.7 H Lymph # (Auto) 1.1 L Sodium 140 Potassium 3.5 Chloride 102 Carbon Dioxide 30 BUN 32 H Creatinine 1.60 H Glucose 168 H Alkaline Phosphatase 171 H Albumin 3.3 L Albumin/Globulin Ratio 1.0 L - Diagnostic Findings Procedure: Chest x-ray: report reviewed by me (No acute cardiopulmonary findings ), X-ray: report reviewed by me (Knee: No radiographic abnormalities) Disposition Clinical Impression: Status post total left knee replacement, Left knee wound dehiscence Case discussed with: patient, patient's family Disposition: Still a Patient Condition: Stable Time of Disposition: 20:14
[2017-02-17] MEDS ORDERED: DEXTROSE 50% 25 GM/50 ML SYRINGE IV PRN (22:04)
[2017-02-17] MEDS ORDERED: MAGNESIUM HYDROXIDE SUSP 30 ML UDCUP PO PRN (22:04)
[2017-02-17] MEDS ORDERED: GLUCAGON 1 MG VIAL IM PRN (22:04)
[2017-02-17 22:49] LABS: Basophils % 0.5 % (0.0-0.8); Eosinophils # 0.2 10*3/uL (0.0-0.87); Eosinophils % 2.7 % (0.00-10.9); Hemoglobin 9.9 GM/DL (12.0-16.0); Immature Granulocytes % 0.5 %; Immature Granulocytes Absolute 0.04 #; Lymphocytes % 12.9 % (21.3-54.2); Mean Corpuscular HGB Conc 31.9 GM/DL (32-36); Mean Corpuscular Hemoglobin 28 PG (27-34); Mean Corpuscular Volume 87.6 FL (87-102); Mean Platelet Volume 10.1 FL (9.6-12.0); Monocytes # 0.5 10*3/uL (0.11-0.8); Monocytes % 5.9 % (1.7-12.7); Neutrophils # 6.3 10*3/uL (1.4-7.4); Neutrophils % 77.5 % (38.7-73.9); Platelet Count 263 T/CUMM (130-400); Red Blood Count 3.54 MC/CUMM (3.8-5.5); Red Cell Distribution Width 14.8 % (9.3-17.3); White Blood Count 8.1 T/CUMM (4-12)
[2017-02-17] MEDS: SODIUM CHLORIDE 0.9% 1,000 ML IV SCH (22:50)
[2017-02-17 23:20] LABS: Bilirubin,Total 0.4 MG/DL (0.2-1.0); Osmolality,Calculated 291.5 MOS/KG (273-304); Potassium 3.5 MMOL/L (3.5-5.1); Total Protein 5.8 G/DL (6.4-8.3)
[2017-02-17] MEDS: INSULIN REGULAR 100 UNIT/ML SUBCUT SCH (23:45)
--- NOTE | 2017-02-18 06:58 | Orthopedic History & Physical ---
History of Present Illness Chief complaint: Wound dehiscence left knee History of present illness: Ms. Tejeda is a 76 year old female See dictated report Diagnosis: Wound dehiscence left total knee Plan: Washout and repair. Discussed Home Medications Medication Instructions Recorded Confirmed Type Atorvastatin [Lipitor] 10 mg PO BEDTIME 04/06/15 02/17/17 History Carvedilol [Coreg] 12.5 mg PO BID 04/06/15 02/17/17 History Folic Acid Tab 1 mg PO BEDTIME 04/06/15 02/17/17 History Furosemide Tab [Lasix Tab] 20 mg PO BEDTIME 04/06/15 02/17/17 History Gabapentin 300 mg PO BEDTIME 04/06/15 02/17/17 History Insulin NPH [HumuLIN N] 33 unit SUBCUT QPM 04/06/15 02/17/17 History Insulin NPH [HumuLIN N] 50 unit SUBCUT QAM 04/06/15 02/17/17 History Insulin Regular [HumuLIN R] 15 unit SUBCUT BID 04/06/15 02/17/17 History amLODIPine [Norvasc] 10 mg PO BEDTIME 04/06/15 02/17/17 History HYDROcodone/ACETAMIN 7.5-325 2 tablet PO Q4H PRN #30 tablet 02/07/17 02/17/17 Rx [[place] 7.5-325] Aspirin [Ecotrin] 81 mg PO BEDTIME 02/17/17 02/17/17 History Cyanocobalamin (Vitamin B-12) 1,000 mcg PO BEDTIME 02/17/17 02/17/17 History [Vitamin B-12] Famotidine/Ca Carb/Mag Hydrox 1 tablet PO BEDTIME 02/17/17 02/17/17 History [Pepcid Complete Chew Tab] Pantoprazole Tab [Protonix Tab] 40 mg PO BEDTIME 02/17/17 02/17/17 History Methenamine Hippurate 1 gm PO BID 02/18/17 02/18/17 History Allergies Allergy/AdvReac Type Severity Reaction Status Date / Time meperidine [From Demerol] AdvReac Mild Nausea Verified 02/18/17 00:12 morphine AdvReac Mild Nausea Verified 02/18/17 00:12 hydrocodone [From Lortab] AdvReac Nausea Verified 02/18/17 00:12 Medical,Surgical,& Family Hx - Medical History Cardio: History of: Hypertension, 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 BROOKS LOPEZ BETTER NOW) Gastrointestinal: History of: GERD No history of: Diverticulitis/ Diverticulosis Musculoskeletal: History of: Back/Neck Problems (stimulator in back; HX SEEING DR. ZHENG), Musculoskeletal Problems (OA) Other: History of: Anesthesia Reactions (nauseated) No history of: Cancer - Surgical History HEENT Surgeries: Surgical HX of: Eye Surgery (RT/LT) Patient denies: Tonsilectomy & Adenoidectomy Abdominal Surgeries: Surgical HX of: Cholecystectomy, Colonoscopy, EGD Reproductive Surgeries: Surgical HX of;: Hysterectomy, Tubal Ligation (RUPTURED CYST RT; LT) Orthopedic Surgeries: Surgical HX of;: Implanted Devices (SCS), Orthopedic Surgery (right knee, ankle fusion LT), Total Knee Replacement (right; 02/03/17 LT ) - Family History Family History: Reports;: Family Cancer (sister), Family Hypertension (mother) - Social History Smoking Status: Never smoker Frequency of Alcohol Use: None Type of Drug Use: None Exam - Constitutional Vitals: Period Temp Pulse Resp BP Sys/Mccann Pulse Ox Last 24 Hr 97.6 F-98.1 F 72-90 18-20 151-159/59-75 97-98 Results - Labs CBC & BMP: 02/17/17 22:39 02/17/17 22:39
[2017-02-18] MEDS: INSULIN REGULAR 100 UNIT/ML SUBCUT SCH ×4 (08:00→21:56)
[2017-02-18] MEDS ORDERED: ONDANSETRON 4 MG/2 ML VIAL ONE ×2 (08:07→09:57)
[2017-02-18] MEDS: ONDANSETRON 4 MG/2 ML VIAL IV PRN ×2 (08:11→10:02)
[2017-02-18] MEDS ORDERED: SCOPOLAMINE 1.5 MG PATCH TRANSDERM ONE (08:14)
[2017-02-18] MEDS ORDERED: VANCOMYCIN 1,000 MG VIAL ONE (09:00)
[2017-02-18] MEDS ORDERED: MAGNESIUM HYDROXIDE SUSP 30 ML UDCUP PO PRN (09:39)
[2017-02-18] MEDS ORDERED: LACTULOSE 20 GM/30 ML UDCUP PO PRN (09:39)
[2017-02-18] MEDS ORDERED: PROMETHAZINE 25 MG/1 ML VIAL IM PRN (09:39)
[2017-02-18] MEDS ORDERED: BISACODYL 10 MG SUPP RECTAL PRN (09:39)
--- NOTE | 2017-02-18 09:54 | Anesthesia Post-Op ---
Anesthesia Post OP - Post Ansesthetic Evaluation Patient seen in post op: Yes Resp: within normal limits CV: within normal limits Mental: within normal limits Temp: within normal limits [id number]: within normal limits Nausea and Vomiting: within normal limits Pain: within normal limits
[2017-02-18] MEDS ORDERED: HYDROmorphone 2 MG/1 ML VIAL ONE (09:57)
[2017-02-18] MEDS ORDERED: ONDANSETRON 4 MG/2 ML VIAL IV PRN (09:57)
[2017-02-18] MEDS: HYDROmorphone 2 MG/1 ML VIAL IV PRN ×3 (10:00→18:14)
[2017-02-18] MEDS ORDERED: SEVOFLURANE 1 UNIT/15 MINUTE INH ONE (10:03)
[2017-02-18] MEDS ORDERED: PROPOFOL 200 MG/20 ML VIAL IV ONE (10:03)
[2017-02-18] MEDS ORDERED: METOCLOPRAMIDE 10 MG/2 ML VIAL ONE (10:04)
[2017-02-18] MEDS ORDERED: fentaNYL 100 MCG/2 ML VIAL ONE (10:04)
[2017-02-18] MEDS ORDERED: KETAMINE 500 MG/10 ML VIAL ONE (10:04)
[2017-02-18] MEDS ORDERED: MIDAZOLAM 2 MG/2 ML VIAL ONE (10:04)
[2017-02-18] MEDS ORDERED: diphenhydrAMINE 50 MG/1 ML VIAL ONE (10:05)
[2017-02-18] MEDS ORDERED: SODIUM CHLORIDE 0.9% 250 ML IV ONE (10:05)
[2017-02-18] MEDS: SODIUM CHLORIDE 0.9% 1,000 ML IV SCH ×3 (10:07→22:14)
--- NOTE | 2017-02-18 10:37 | Hospitalist Consult Note ---
Assessment and Plan (1) Diabetes mellitus Status: Chronic Assessment and plan: I reconciled the patient's medication and continued her long-acting insulin twice daily. I am going to hold mealtime doses for now and substitute sliding scale as required until oral intake is predictable. We did continue the patient 's antihypertensive regimen and heart failure regimen but hold diuretic for now. I would anticipate restarting that tomorrow the following day as physical therapy continues and she tolerates orthostatic changes. Current Visit: No Qualifiers: Diabetes mellitus type: type 2 Diabetes mellitus complication detail: with chronic kidney disease Chronic kidney disease stage: stage 2 (mild) (2) Heart failure with preserved left ventricular function (HFpEF) Status: Chronic Current Visit: No (3) Chronic kidney disease Status: Chronic Current Visit: No Qualifiers: Chronic kidney disease stage: stage 3 (moderate) Qualified Code(s): N18.3 - Chronic kidney disease, stage 3 (moderate) (4) Hypertension Status: Chronic Current Visit: No History of Present Illness - Data of Consult Patient: new to practice Consult date: 02/18/17 Requesting Physician: Robbie Canales Jr. Primary care physician: Teo Gonzales - Consult Narrative Reason for consult: diabetes management History of present illness: Ms. Tejeda is a 76 year old female with history of diabetes, chronic kidney disease, hypertension, GERD, COPD, and dyslipidemia. Dr. Mensah saw her in the office on December 27. She had a stress test Dr. Mensah's office January 16, 2017 was read as probably normal perfusion study and low risk for cardiovascular events. Echocardiogram done December 31, 2016 with ejection fraction of 55%. She was low risk for shayy-/post operative cardiac events. Patient has no known coronary artery disease cardiac dysrhythmia has never been admitted for heart failure signs or symptoms. She was admitted February 03 for left total knee replacement with Dr. Parker Hernandez. The patient is now admitted to hospital for treatment of surgical wound dehiscence. We are consulted to manage diabetes, hypertension, and heart failure. The patient does not complain of angina, palpitations, or dyspnea. A complete 10 system review was obtained. Systems not mentioned above were negative. CC: Robbie Canales Jr., MD - Home Medications and Allergies Home Medications: Home Medications Medication Instructions Recorded Confirmed Type RX: Atorvastatin [Lipitor] 10 mg PO BEDTIME 04/06/15 02/17/17 History RX: Carvedilol [Coreg] 12.5 mg PO BID 04/06/15 02/17/17 History RX: Folic Acid Tab 1 mg PO BEDTIME 04/06/15 02/17/17 History RX: Furosemide Tab [Lasix Tab] 20 mg PO BEDTIME 04/06/15 02/17/17 History RX: Gabapentin 300 mg PO BEDTIME 04/06/15 02/17/17 History RX: Insulin NPH [HumuLIN N] 33 unit SUBCUT QPM 04/06/15 02/17/17 History RX: Insulin NPH [HumuLIN N] 50 unit SUBCUT QAM 04/06/15 02/17/17 History RX: Insulin Regular [HumuLIN R] 15 unit SUBCUT BID 04/06/15 02/17/17 History RX: amLODIPine [Norvasc] 10 mg PO BEDTIME 04/06/15 02/17/17 History RX: HYDROcodone/ACETAMIN 7.5-325 2 tablet PO Q4H PRN #30 tablet 02/07/17 Rx [[place] 7.5-325] Aspirin [Ecotrin] 81 mg PO BEDTIME 02/17/17 02/17/17 History Cyanocobalamin (Vitamin B-12) 1,000 mcg PO BEDTIME 02/17/17 02/17/17 History [Vitamin B-12] Famotidine/Ca Carb/Mag Hydrox 1 tablet PO BEDTIME 02/17/17 02/17/17 History [Pepcid Complete Chew Tab] Pantoprazole Tab [Protonix Tab] 40 mg PO BEDTIME 02/17/17 02/17/17 History RX: Methenamine Hippurate 1 gm PO BID 02/18/17 02/18/17 History Allergies/Adverse Reactions: Allergies Allergy/AdvReac Type Severity Reaction Status Date / Time meperidine [From Demerol] AdvReac Mild Nausea Verified 02/18/17 00:12 morphine AdvReac Mild Nausea Verified 02/18/17 00:12 hydrocodone [From Lortab] AdvReac Nausea Verified 02/18/17 00:12 Medical,Surgical,& Family Hx - Medical History Cardio: History of: Hypertension, 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 BROOKS LOPEZ BETTER NOW) Gastrointestinal: History of: GERD No history of: Diverticulitis/ Diverticulosis Musculoskeletal: History of: Back/Neck Problems (stimulator in back; HX SEEING DR. ZHENG), Musculoskeletal Problems (OA) Other: History of: Anesthesia Reactions (nauseated) No history of: Cancer - Surgical History HEENT Surgeries: Surgical HX of: Eye Surgery (RT/LT) Patient denies: Tonsilectomy & Adenoidectomy Abdominal Surgeries: Surgical HX of: Cholecystectomy, Colonoscopy, EGD Reproductive Surgeries: Surgical HX of;: Hysterectomy, Tubal Ligation (RUPTURED CYST RT; LT) Orthopedic Surgeries: Surgical HX of;: Implanted Devices (SCS), Orthopedic Surgery (right knee, ankle fusion LT), Total Knee Replacement (right; 02/03/17 LT ) - Family History Family History: Reports;: Family Cancer (sister), Family Hypertension (mother) - Social History Smoking Status: Never smoker Frequency of Alcohol Use: None Type of Drug Use: None Marital Status: Lives With:: Spouse Functional capacity: uses cane/walker 12 point system: reviewed and no additional remarkable complaints except as stated Exam - Constitutional Vitals: Period Temp Pulse Resp BP Sys/Mccann Pulse Ox Last 24 Hr 97.6 F-98.7 F 72-90 16-20 151-191/59-79 10-100 Exam: Constitutional System: Minimal distress. No tremulousness. The patient is now postoperative and still somewhat sedated from anesthetic. Head: Normocephalic, atraumatic. Ears, Nose and Throat System: No evidence of Otitis or Mastoiditis. No epistaxis or discharge Eyes System: Pupils equal, round, and reactive. Extraocular muscles intact. Neck: Supple, without adenopathy, No jugular venous distention. No thyromegaly , neck mass, or prior surgery apparent. Respiratory System: Chest clear to auscultation. Cardiovascular System: Heart with regular rate and rhythm. No murmur. GI System: Abdomen soft, nontender. Normo active bowel sounds present. Musculoskeletal System: limbs with no pedal edema. Left lower extremity bandaged postoperatively Neurological System: No discernable sensory deficit. No aphasia Psychiatric System: Conversation is rational Capillary Refill: less than 2 sec Results - Labs CBC & BMP: 02/17/17 22:39 02/17/17 22:39 Lab Results: I have reviewed the past 24 hour labs
--- NOTE | 2017-02-18 12:22 | Orthopedic Progress Note ---
Orthopedics - Subjective Interval history: Discussed with the family our findings also the plan going forward will start with PT mobilizing in a knee immobilizer and on IV antibiotics over the next few days consider swing bed placement Exam - Constitutional Vitals: Period Temp Pulse Resp BP Sys/Mccann Pulse Ox Last 24 Hr 97.6 F-98.7 F 72-90 16-20 151-191/59-79 10-100 Results - Labs CBC & BMP: 02/17/17 22:39 02/17/17 22:39
--- NOTE | 2017-02-18 14:17 | History and Physical Report ---
DATE OF ADMISSION: 02/17/2017 HISTORY: A 76-year-old white female, approximately two weeks from elective left total knee, had her wound dehisced on the evening of 02/17/17. She reportedly had her lul removed by home health ear lier in the day with ambulating about the house. She has been in the bathroom and her wound busted o pen. She was admitted to [facility] and started on antibiotics for operative washout and repair. PAST SURGICAL HISTORY: Recent total knee. PAST MEDICAL HISTORY: Diabetes, kidney disease, hypertension, reflux, pulmonary, history of heart fa ilure. ALLERGIES: DEMEROL, MORPHINE AND HYDROCODONE. MEDICATIONS: Norvasc, Lipitor, Dulcolax, Coreg, vitamins, Neurontin, insulin. PHYSICAL EXAMINATION GENERAL: Well-developed, well-nourished female. HEENT: Within normal limits. CHEST: Clear. HEART: Regular rate and rhythm. ABDOMEN: Soft, nontender. /RECTAL: Deferred. EXTREMITIES: The left lower extremity reveals dehiscence of the central third of the wound. There i s some bloody drainage on the gauze. The Steri-Strips are still in place. There is no pain more dis tally or swelling distally about the tip of the right, proximal about the hip, decreased motion secon corine to pain RADIOGRAPHS: None. IMPRESSION: WOUND DEHISCENCE, LEFT TOTAL KNEE. PLAN: I have discussed with her the need for formally washing out and repair, which we would proceed urgently this morning.
--- NOTE | 2017-02-18 16:47 | Operative Note ---
DATE: 02/18/2017 PREOPERATIVE DIAGNOSIS: WOUND DEHISCENCE, LEFT TOTAL KNEE POSTOPERATIVE DIAGNOSIS: SAME. OPERATIVE PROCEDURE: Irrigation and debridement with wound repair, left total knee. SURGEON: Robbie Canales Jr., MD ANESTHESIA: General. INDICATIONS: A 76-year-old white female, two weeks from total knee surgery. She had a wound open up last night while at home. She had her staple removed earlier in the day. She was taken to the oper ating room urgently for washout and repair. OPERATIVE PROCEDURE: The patient was taken to the operating room and under general anesthetic, posit ioned supine position. All the dressing and Steri-Strips removed from the anterior aspect of her lef t knee and it was prepped and draped with usual sterile fashion. Pulse lavage irrigation was used to irrigate through the central wound dehiscence. It was obvious that the medial retinaculum was also torn, once the wound was opened up. This resulted an extension of the wound to its full extent. Bot h proximal and distal sutures from the arthrotomy were taken out, so that the knee joint itself could be irrigated. Six liters of pulse lavage irrigation were used. A #0 PDS was used to reapproximate the arthrotomy in interrupted fashion. The subcutaneous and skin layer were closed in a single layer using interrupted nylon suture. Sterile dressing was applied. Tourniquet was deflated after about 40 minutes. She was taken to recovery room in stable condition.
[2017-02-18] MEDS ORDERED: INSULIN NPH 100 UNIT/ML SUBCUT SCH (19:00)
[2017-02-18] MEDS ORDERED: VANCOMYCIN INJ 1,750 MG in SODIUM CHLORIDE 0.9% 500 ML IV SCH (21:00)
[2017-02-18] MEDS: CYANOCOBALAMIN 500 MCG TABLET PO SCH (21:54)
[2017-02-18] MEDS: amLODIPine 10 MG TABLET PO SCH (21:54)
[2017-02-18] MEDS: METHENAMINE HIPPURATE 1 GM TABLET PO SCH (21:54)
[2017-02-18] MEDS: CARVEDILOL 12.5 MG TABLET PO SCH (21:55)
[2017-02-18] MEDS: FOLIC ACID 1 MG TABLET PO SCH (21:55)
[2017-02-18] MEDS: ATORVASTATIN 10 MG TABLET PO SCH (21:55)
[2017-02-18] MEDS: GABAPENTIN 300 MG CAPSULE PO SCH (21:55)
[2017-02-18] MEDS: MAGNESIUM HYDROXIDE PO SCH (22:07)
[2017-02-18] MEDS: [UNRECOGNIZED DRUG - OTHER] PO SCH (22:07)
[2017-02-18] MEDS: FAMOTIDINE PO SCH (22:07)
[2017-02-18] MEDS: CALCIUM CARBONATE PO SCH (22:07)
[2017-02-19 06:22] LABS: Basophils % 0.4 % (0.0-0.8); Eosinophils # 0.2 10*3/uL (0.0-0.87); Eosinophils % 1.7 % (0.00-10.9); Hematocrit 28.9 VOL% (35.7-47.0); Hemoglobin 8.8 GM/DL (12.0-16.0); Immature Granulocytes % 0.5 %; Immature Granulocytes Absolute 0.05 #; Lymphocytes # 1.1 10*3/uL (1.4-4.0); Lymphocytes % 10.7 % (21.3-54.2); Mean Corpuscular HGB Conc 30.4 GM/DL (32-36); Mean Corpuscular Hemoglobin 28 PG (27-34); Mean Corpuscular Volume 90.9 FL (87-102); Mean Platelet Volume 10.2 FL (9.6-12.0); Monocytes # 0.9 10*3/uL (0.11-0.8); Monocytes % 8.4 % (1.7-12.7); Neutrophils % 78.3 % (38.7-73.9); Platelet Count 248 T/CUMM (130-400); Red Blood Count 3.18 MC/CUMM (3.8-5.5); Red Cell Distribution Width 15.1 % (9.3-17.3); White Blood Count 10.1 T/CUMM (4-12)
[2017-02-19] MEDS: SODIUM CHLORIDE 0.9% 1,000 ML IV SCH ×3 (06:38→20:45)
[2017-02-19 06:55] LABS: Calcium 8.6 MG/DL (8.5-10.1); Magnesium 2.1 MG/DL (1.8-2.4); Osmolality,Calculated 289.7 MOS/KG (273-304); Potassium 3.8 MMOL/L (3.5-5.1)
--- NOTE | 2017-02-19 07:56 | Orthopedic Progress Note ---
Orthopedics - Subjective Interval history: Comfortable no change continue IV antibiotics during hospitalization likely switch to p.o. to empirically cover her wound dehiscence. Working on swing bed discussed. Will start mobilizing with PT today Exam - Constitutional Vitals: Period Temp Pulse Resp BP Sys/Mccann Pulse Ox Last 24 Hr 97.4 F-98.9 F 67-87 16-20 120-191/56-86 10-100 Results - Labs CBC & BMP: 02/19/17 06:02 02/19/17 06:02
[2017-02-19] MEDS ORDERED: INSULIN NPH 100 UNIT/ML SUBCUT SCH ×2 (08:47→09:00)
[2017-02-19] MEDS ORDERED: INFLUENZA VIRUS VACCINE 0.5 ML SYRINGE IM ONE (09:07)
[2017-02-19] MEDS: CARVEDILOL 12.5 MG TABLET PO SCH ×2 (09:24→20:49)
[2017-02-19] MEDS: FONDAPARINUX 2.5 MG/0.5 ML SYRINGE SUBCUT SCH (09:24)
[2017-02-19] MEDS: METHENAMINE HIPPURATE 1 GM TABLET PO SCH ×2 (09:24→20:47)
[2017-02-19] MEDS: INSULIN NPH 100 UNIT/ML SUBCUT SCH (09:28)
[2017-02-19] MEDS: INSULIN REGULAR 100 UNIT/ML SUBCUT SCH ×4 (09:28→21:37)
[2017-02-19] MEDS ORDERED: DEXTROSE 50% 25 GM/50 ML VIAL IV PRN (11:00)
--- NOTE | 2017-02-19 11:29 | Hospitalist Progress Note ---
Assessment and Plan (1) Diabetes mellitus Status: Chronic Assessment and plan: I reduced patient's long-acting insulin by about 25%. I am going to hold mealtime doses for now and substitute sliding scale as required until oral intake is predictable. We did continue the patient's antihypertensive regimen and heart failure regimen but hold diuretic for now. I would anticipate restarting that tomorrow the following day as physical therapy continues and she tolerates orthostatic changes. Current Visit: No Qualifiers: Diabetes mellitus type: type 2 Diabetes mellitus complication detail: with chronic kidney disease Chronic kidney disease stage: stage 2 (mild) (2) Heart failure with preserved left ventricular function (HFpEF) Status: Chronic Current Visit: No (3) Chronic kidney disease Status: Chronic Current Visit: No Qualifiers: Chronic kidney disease stage: stage 3 (moderate) Qualified Code(s): N18.3 - Chronic kidney disease, stage 3 (moderate) (4) Hypertension Status: Chronic Current Visit: No Hospitalist: Subjective Interval history: The patient has reduced oral intake due to antibiotics and pain medication. I am going to reduce her long-acting insulin and reevaluate tomorrow for further insulin adjustment. Exam - Constitutional Vitals: Period Temp Pulse Resp BP Sys/Mccann Pulse Ox Last 24 Hr 97.4 F-98.9 F 67-87 17-20 120-186/56-86 97-100 Exam: Constitutional System: Minimal distress. No tremulousness. The patient is now postoperative and still somewhat sedated from anesthetic. Head: Normocephalic, atraumatic. Ears, Nose and Throat System: No evidence of Otitis or Mastoiditis. No epistaxis or discharge Eyes System: Pupils equal, round, and reactive. Extraocular muscles intact. Neck: Supple, without adenopathy, No jugular venous distention. No thyromegaly , neck mass, or prior surgery apparent. Respiratory System: Chest clear to auscultation. Cardiovascular System: Heart with regular rate and rhythm. No murmur. GI System: Abdomen soft, nontender. Normo active bowel sounds present. Musculoskeletal System: limbs with no pedal edema. Left lower extremity bandaged postoperatively Neurological System: No discernable sensory deficit. No aphasia Psychiatric System: Conversation is rational Capillary Refill: less than 2 sec Results - Labs CBC & BMP: 02/19/17 06:02 02/19/17 06:02 Lab Results: I have reviewed the past 24 hour labs Specialty Discharge - Follow Up or Referrals Follow up with: Robbie Canales Jr., MD [Physician] -
[2017-02-19] MEDS: HYDROmorphone 2 MG/1 ML VIAL IV PRN (14:20)
[2017-02-19] MEDS: FAMOTIDINE PO SCH (20:40)
[2017-02-19] MEDS: [UNRECOGNIZED DRUG - OTHER] PO SCH (20:40)
[2017-02-19] MEDS: CALCIUM CARBONATE PO SCH (20:40)
[2017-02-19] MEDS: MAGNESIUM HYDROXIDE PO SCH (20:40)
[2017-02-19] MEDS: CYANOCOBALAMIN 500 MCG TABLET PO SCH (20:47)
[2017-02-19] MEDS: FOLIC ACID 1 MG TABLET PO SCH (20:47)
[2017-02-19] MEDS: amLODIPine 10 MG TABLET PO SCH (20:47)
[2017-02-19] MEDS: ATORVASTATIN 10 MG TABLET PO SCH (20:48)
[2017-02-19] MEDS: GABAPENTIN 300 MG CAPSULE PO SCH (20:49)
[2017-02-19] MEDS: VANCOMYCIN INJ 1,750 MG in SODIUM CHLORIDE 0.9% 500 ML IV SCH (21:34)
[2017-02-20] MEDS: SODIUM CHLORIDE 0.9% 1,000 ML IV SCH (00:19)
--- NOTE | 2017-02-20 07:53 | Orthopedic Progress Note ---
Orthopedics - Subjective Interval history: Comfortable dressing relatively dry will start dressing change today possible to swing bed tomorrow continues to progress with wound care and PT. Exam - Constitutional Vitals: Period Temp Pulse Resp BP Sys/Mccann Pulse Ox Last 24 Hr 97.5 F-98.5 F 77-88 18-20 135-186/49-73 90-99 Results - Labs CBC & BMP: 02/19/17 06:02 02/19/17 06:02 Specialty Discharge - Follow Up or Referrals Follow up with: Robbie Canales Jr., MD [Physician] -
[2017-02-20] MEDS: CARVEDILOL 12.5 MG TABLET PO SCH ×2 (08:53→22:05)
[2017-02-20] MEDS: FONDAPARINUX 2.5 MG/0.5 ML SYRINGE SUBCUT SCH (08:53)
[2017-02-20] MEDS: METHENAMINE HIPPURATE 1 GM TABLET PO SCH ×2 (08:53→22:04)
[2017-02-20] MEDS: INSULIN REGULAR 100 UNIT/ML SUBCUT SCH ×4 (08:54→22:21)
[2017-02-20] MEDS: INSULIN NPH 100 UNIT/ML SUBCUT SCH (08:54)
[2017-02-20] MEDS ORDERED: INSULIN NPH 100 UNIT/ML SUBCUT SCH (10:14)
--- NOTE | 2017-02-20 15:53 | Hospitalist Progress Note ---
Assessment and Plan (1) Diabetes mellitus Status: Chronic Assessment and plan: I reduced patient's long-acting insulin by about 25%. The patient had morning hyperglycemia so I am going to increase the evening insulin dose and continue following glucometers. Sliding-scale orders continued. Current Visit: No Qualifiers: Diabetes mellitus type: type 2 Diabetes mellitus complication detail: with chronic kidney disease Chronic kidney disease stage: stage 2 (mild) (2) Heart failure with preserved left ventricular function (HFpEF) Status: Chronic Current Visit: No (3) Chronic kidney disease Status: Chronic Current Visit: No Qualifiers: Chronic kidney disease stage: stage 3 (moderate) Qualified Code(s): N18.3 - Chronic kidney disease, stage 3 (moderate) (4) Hypertension Status: Chronic Current Visit: No Hospitalist: Subjective Interval history: Mrs. Quintero is resting quietly in her room today. Carbohydrate intake is increasing as her pain level decreases. The patient had hyperglycemia this morning. Exam - Constitutional Vitals: Period Temp Pulse Resp BP Sys/Mccann Pulse Ox Last 24 Hr 97.9 F-98.5 F 76-88 16-20 135-155/59-73 90-98 Exam: Constitutional System: Minimal distress. No tremulousness. The patient is now postoperative and still somewhat sedated from anesthetic. Head: Normocephalic, atraumatic. Ears, Nose and Throat System: No evidence of Otitis or Mastoiditis. No epistaxis or discharge Eyes System: Pupils equal, round, and reactive. Extraocular muscles intact. Neck: Supple, without adenopathy, No jugular venous distention. No thyromegaly , neck mass, or prior surgery apparent. Respiratory System: Chest clear to auscultation. Cardiovascular System: Heart with regular rate and rhythm. No murmur. GI System: Abdomen soft, nontender. Normo active bowel sounds present. Musculoskeletal System: limbs with no pedal edema. Left lower extremity bandaged postoperatively Neurological System: No discernable sensory deficit. No aphasia Psychiatric System: Conversation is rational Results - Labs CBC & BMP: 02/19/17 06:02 02/19/17 06:02 Lab Results: I have reviewed the past 24 hour labs Specialty Discharge - Follow Up or Referrals Follow up with: Robbie Canales Jr., MD [Physician] -
[2017-02-20] MEDS ORDERED: FAMOTIDINE 20 MG TABLET PO SCH (21:00)
[2017-02-20] MEDS: VANCOMYCIN INJ 1,750 MG in SODIUM CHLORIDE 0.9% 500 ML IV SCH (21:30)
[2017-02-20] MEDS: CYANOCOBALAMIN 500 MCG TABLET PO SCH (22:04)
[2017-02-20] MEDS: GABAPENTIN 300 MG CAPSULE PO SCH (22:04)
[2017-02-20] MEDS: FOLIC ACID 1 MG TABLET PO SCH (22:04)
[2017-02-20] MEDS: amLODIPine 10 MG TABLET PO SCH (22:05)
[2017-02-20] MEDS: ATORVASTATIN 10 MG TABLET PO SCH (22:09)
[2017-02-21 07:04] VITALS: BP 164/71
[2017-02-21] MEDS: INSULIN REGULAR 100 UNIT/ML SUBCUT SCH (08:30)
--- NOTE | 2017-02-21 08:32 | Orthopedic Progress Note ---
Orthopedics - Subjective Interval history: Comfortable wound looks good is clean and dry instructed regarding her weightbearing status with a knee immobilizer will be discharged today to swing bed follow-up with me in approximately 10-12 days. Exam - Constitutional Vitals: Period Temp Pulse Resp BP Sys/Mccann Pulse Ox Last 24 Hr 97.2 F-98.2 F 72-88 16-22 130-164/46-71 92-98 Results - Labs CBC & BMP: 02/19/17 06:02 02/19/17 06:02 Specialty Discharge - Follow Up or Referrals Follow up with: Robbie Canales Jr., MD [Physician] -
--- NOTE | 2017-02-21 08:33 | Discharge Summary ---
Hospital Course - Hospital Course Hospital Course: Admitted after wound dehiscence at home has had followed removal of lul underwent washout repair and IV antibiotics while inpatient she has now been accepted to swing bed will be discharged on p.o. pain medication and p.o. antibiotic follow-up in approximately 10-11 days. Specialty Discharge - Follow Up or Referrals Follow up with: Robbie Canales Jr., MD [Physician] - Discharge Plan - Discharge Medications No Action Atorvastatin [Lipitor] 10 mg PO BEDTIME Insulin NPH [HumuLIN N] 33 unit SUBCUT QPM Insulin NPH [HumuLIN N] 50 unit SUBCUT QAM Furosemide Tab [Lasix Tab] 20 mg PO BEDTIME Insulin Regular [HumuLIN R] 15 unit SUBCUT BID Gabapentin 300 mg PO BEDTIME Folic Acid Tab 1 mg PO BEDTIME Carvedilol [Coreg] 12.5 mg PO BID amLODIPine [Norvasc] 10 mg PO BEDTIME Cyanocobalamin (Vitamin B-12) [Vitamin B-12] 1,000 mcg PO BEDTIME Famotidine/Ca Carb/Mag Hydrox [Pepcid Complete Chew Tab] 1 tablet PO BEDTIME Aspirin [Ecotrin] 81 mg PO BEDTIME HYDROcodone/ACETAMIN 7.5-325 [[place] 7.5-325] 2 tablet PO Q4H PRN #30 tablet PRN Reason: Moderate Pain unrelieved by 1 Pantoprazole Tab [Protonix Tab] 40 mg PO BEDTIME Methenamine Hippurate 1 gm PO BID - Follow Up or Referral Follow Up: Robbie Canales Jr., MD [Physician] - - Forms/Instructions Instructions: Wound Dehiscence (DC), Total Knee Replacement, Credit Union Manager ( GEN) Exam - Constitutional Vitals: Period Temp Pulse Resp BP Sys/Mccann Pulse Ox Last 24 Hr 97.2 F-98.2 F 72-88 16-22 130-164/46-71 92-98 Discharge Results Procedures and tests throughout hospitalization: Pending Orders 02/17/17 06:31 Blood Culture Stat 02/21/17 20:30 Vancomycin,Trough Timed Labs on day of discharge: Labs from last 24 hours 02/21/17 02/20/17 02/20/17 06:47 20:47 16:38 POC Glucose 100 159 H 175 H 02/20/17 11:03 POC Glucose 269 H Preliminary micro results at discharge 02/17/17 06:31 Blood Culture - Preliminary Blood No growth at 3 days 02/17/17 06:31 Blood Culture - Preliminary Blood No growth at 3 days DS: Provider Date of admission: 02/17/17 20:15 Primary care physician: Teo Gonzales MD Attending physician on admission: Robbie Canales Jr., MD Consults: 02/17/17 22:04 Consult to Anesthesiology [CONS] Routine Consulting Provider: Reason for Anesthesiology: Pre-op Clearance Consult to Physician [CONS] Routine Comment: Medical director of materials management Provider: [facility] Consulting Provider Notified: Yes When should Consulting Provider be notified: In am Person Notified: mirian called Date Notified: 02/18/17 Time Notified: 10:40 02/18/17 09:39 Consult to Physical Therapy [CONS] Routine Reason for Physical Therapy: Evaluate and Treat Consult Comment: Knee immobilizer and crutch ambulate on left may weight- bear as tolerated 02/18/17 09:44 Consult to Case Mgmt/Social Srvs [CONS] Routine Reason for Case Mgmt/Social Srvs: Home Health Rehab Equipment Consult to Occupational Therapy [CONS] Routine Reason for Occupational Therapy: Evaluate and Treat Discharging clinician: Robbie Canales Jr., MD
--- NOTE | 2017-02-21 08:36 | Discharge Summary ---
Hospital Course - Hospital Course Hospital Course: Admitted after wound dehiscence at home has had followed removal of lul underwent washout repair and IV antibiotics while inpatient she has now been accepted to swing bed will be discharged on p.o. pain medication and p.o. antibiotic follow-up in approximately 10-11 days. Diagnosis - Discharge Diagnosis (1) Wound dehiscence left knee Status: Acute Specialty Discharge - Follow Up or Referrals Follow up with: Robbie Canales Jr., MD [Physician] - Discharge Plan - Discharge Data Disposition: Swing Bed, [facility] Based, [facility] [place] Condition at Discharge: Stable Discharge Diet: advance to your usual diet Activity: as per physical therapy, increase activity as tolerated Hygiene: may shower Weight Bearing at Discharge: weight bear as tolerated (With knee immobilizer in place. no active or passive range of motion) - Discharge Medications New HYDROcodone/ACETAMIN 7.5-325 [[place] 7.5-325] 2 tablet PO Q4H PRN #25 tablet PRN Reason: Pain Severe (8-10) Continue Atorvastatin [Lipitor] 10 mg PO BEDTIME Insulin NPH [HumuLIN N] 33 unit SUBCUT QPM Insulin NPH [HumuLIN N] 50 unit SUBCUT QAM Furosemide Tab [Lasix Tab] 20 mg PO BEDTIME Insulin Regular [HumuLIN R] 15 unit SUBCUT BID Gabapentin 300 mg PO BEDTIME Folic Acid Tab 1 mg PO BEDTIME Carvedilol [Coreg] 12.5 mg PO BID amLODIPine [Norvasc] 10 mg PO BEDTIME Cyanocobalamin (Vitamin B-12) [Vitamin B-12] 1,000 mcg PO BEDTIME Famotidine/Ca Carb/Mag Hydrox [Pepcid Complete Chew Tab] 1 tablet PO BEDTIME Aspirin [Ecotrin] 81 mg PO BEDTIME HYDROcodone/ACETAMIN 7.5-325 [[place] 7.5-325] 2 tablet PO Q4H PRN #30 tablet PRN Reason: Moderate Pain unrelieved by 1 Pantoprazole Tab [Protonix Tab] 40 mg PO BEDTIME Methenamine Hippurate 1 gm PO BID - Follow Up or Referral Follow Up: Robbie Canales Jr., MD [Physician] - - Forms/Instructions Instructions: Wound Dehiscence (DC), Total Knee Replacement, Animal Sticker ( GEN) Additional Discharge Instructions: Discharge to swing bed continue home medications including her aspirin daily [place] 7.5 for pain #25 no refills. Mobilizing with a walker and knee immobilizer she must have her knee immobilizer on except for bathing hygiene purposes she may weight-bear as tolerated with the brace on left knee. Daily dry dressing follow-up with me March 05 or Exam - Constitutional Vitals: Period Temp Pulse Resp BP Sys/Mccann Pulse Ox Last 24 Hr 97.2 F-98.2 F 72-88 16-22 130-164/46-71 92-98 Discharge Results Procedures and tests throughout hospitalization: Pending Orders 02/17/17 06:31 Blood Culture Stat 02/21/17 20:30 Vancomycin,Trough Timed Labs on day of discharge: Labs from last 24 hours 02/21/17 02/20/17 02/20/17 06:47 20:47 16:38 POC Glucose 100 159 H 175 H 02/20/17 11:03 POC Glucose 269 H Preliminary micro results at discharge 02/17/17 06:31 Blood Culture - Preliminary Blood No growth at 3 days 02/17/17 06:31 Blood Culture - Preliminary Blood No growth at 3 days DS: Provider Date of admission: 02/17/17 20:15 Primary care physician: eTo Gonzales MD Attending physician on admission: Robbie Canales Jr., MD Consults: 02/17/17 22:04 Consult to Anesthesiology [CONS] Routine Consulting Provider: Reason for Anesthesiology: Pre-op Clearance Consult to Physician [CONS] Routine Comment: Medical director of program management Provider: [facility] Consulting Provider Notified: Yes When should Consulting Provider be notified: In am Person Notified: mirian called Date Notified: 02/18/17 Time Notified: 10:40 02/18/17 09:39 Consult to Physical Therapy [CONS] Routine Reason for Physical Therapy: Evaluate and Treat Consult Comment: Knee immobilizer and crutch ambulate on left may weight- bear as tolerated 02/18/17 09:44 Consult to Case Mgmt/Social Srvs [CONS] Routine Reason for Case Mgmt/Social Srvs: Home Health Rehab Equipment Consult to Occupational Therapy [CONS] Routine Reason for Occupational Therapy: Evaluate and Treat Discharging clinician: Robbie Canales Jr., MD
[2017-02-21] MEDS: CARVEDILOL 12.5 MG TABLET PO SCH (09:01)
[2017-02-21] MEDS: METHENAMINE HIPPURATE 1 GM TABLET PO SCH (09:01)
[2017-02-21] MEDS: FONDAPARINUX 2.5 MG/0.5 ML SYRINGE SUBCUT SCH (09:02)
[2017-02-21] MEDS: INSULIN NPH 100 UNIT/ML SUBCUT SCH (09:04)
[2017-02-21] MEDS ORDERED: ZINC OXIDE PASTE 113 GM TUBE TOP SCH (10:30)
--- NOTE | 2017-02-21 13:36 | Hospitalist Progress Note ---
Assessment and Plan (1) Diabetes mellitus Status: Chronic Assessment and plan: The patient is ready for discharge home, and can continue present dose of antidiabetic medication. The patient will follow up with her usual diabetes physician. Current Visit: No Qualifiers: Diabetes mellitus type: type 2 Diabetes mellitus complication detail: with chronic kidney disease Chronic kidney disease stage: stage 2 (mild) (2) Heart failure with preserved left ventricular function (HFpEF) Status: Chronic Current Visit: No (3) Chronic kidney disease Status: Chronic Current Visit: No Qualifiers: Chronic kidney disease stage: stage 3 (moderate) Qualified Code(s): N18.3 - Chronic kidney disease, stage 3 (moderate) (4) Hypertension Status: Chronic Current Visit: No Hospitalist: Subjective Interval history: Mrs. Quintero had blood glucose 100 this morning. I recommend that she continue present dose of antidiabetic medication. Exam - Constitutional Vitals: Period Temp Pulse Resp BP Sys/Mccann Pulse Ox Last 24 Hr 97.2 F-98.0 F 72-88 18-22 130-164/46-71 92-98 Exam: Constitutional System: Minimal distress. No tremulousness. The patient is now postoperative and still somewhat sedated from anesthetic. Head: Normocephalic, atraumatic. Ears, Nose and Throat System: No evidence of Otitis or Mastoiditis. No epistaxis or discharge Eyes System: Pupils equal, round, and reactive. Extraocular muscles intact. Neck: Supple, without adenopathy, No jugular venous distention. No thyromegaly , neck mass, or prior surgery apparent. Respiratory System: Chest clear to auscultation. Cardiovascular System: Heart with regular rate and rhythm. No murmur. GI System: Abdomen soft, nontender. Normo active bowel sounds present. Musculoskeletal System: limbs with no pedal edema. Left lower extremity bandaged postoperatively Neurological System: No discernable sensory deficit. No aphasia Psychiatric System: Conversation is rational Results - Labs CBC & BMP: 02/19/17 06:02 02/19/17 06:02 Lab Results: I have reviewed the past 24 hour labs Specialty Discharge - Follow Up or Referrals Follow up with: Robbie Cnaales Jr., MD [Physician] - 03/03/17 1:00 pm (10-11 days)
== END 2017-02-21 11:00 | disposition swing bed (61) | DRG 908 ==
LOC: EDUNIT# → EDBD → N.ED 18:03 → N.EDINP 20:15 → N.3E 20:54
PROVIDERS: ADMIT Orthopaedic Surgery; ATTEND Orthopaedic Surgery

== ENCOUNTER 2018-07-25 22:17 | Inpatient (IN) ==
[2018-07-26] MEDS ORDERED: DEXTROSE 50% 25 GM/50 ML SYRINGE IV ONE (00:42)
[2018-07-26] MEDS ORDERED: ALBUTEROL/IPRATROPIUM 3 ML NEB RESP TX ONE (01:45)
[2018-07-26] MEDS ORDERED: RACEPINEPHRINE 0.5 ML NEB RESP TX ONE (01:48)
[2018-07-26] MEDS ORDERED: methylPREDNISolone SOD SUC 125 MG/2 ML VIAL IV ONE (01:48)
[2018-07-26] MEDS ORDERED: DEXTROSE 50% 25 GM/50 ML SYRINGE IV PRN (01:50)
[2018-07-26] MEDS ORDERED: GLUCAGON 1 MG VIAL IM PRN (01:50)
[2018-07-26 02:00] LABS: Allen Test Positive
[2018-07-26 02:01] LABS: ABG Base Excess 1.5 MMOL/L (-2.5-2.5); ABG HCO3 25.8 MMOL/L (20-26); ABG Oxygen Saturation 98.8 % (95-100); ABG PCO2 51.5 MM HG (35-48); ABG PH 7.343 (7.35-7.45); ABG TCO2 25.7 MMOL/L (23-27)
[2018-07-26] MEDS ORDERED: hydrALAZINE 20 MG/1 ML VIAL IV PRN (03:19)
[2018-07-26] MEDS: POTASSIUM CHLORIDE RIDER 10 MEQ in PREMIX 1 EACH IV SCH ×2 (04:15→06:30)
[2018-07-26] MEDS: FUROSEMIDE 40 MG/4 ML VIAL IV SCH ×2 (04:15→10:31)
[2018-07-26 04:48] LABS: Basophils % 0.2 % (0.0-0.8); Eosinophils % 0.4 % (0.00-10.9); Hemoglobin 9.6 GM/DL (12.0-16.0); Immature Granulocytes % 0.4 %; Immature Granulocytes Absolute 0.04 #; Lymphocytes # 0.6 10*3/uL (1.4-4.0); Lymphocytes % 4.9 % (21.3-54.2); Mean Corpuscular Hemoglobin 27 PG (27-34); Mean Corpuscular Volume 87.8 FL (87-102); Mean Platelet Volume 10.7 FL (9.6-12.0); Monocytes # 0.4 10*3/uL (0.11-0.8); Monocytes % 3.7 % (1.7-12.7); Neutrophils # 10.3 10*3/uL (1.4-7.4); Neutrophils % 90.4 % (38.7-73.9); Platelet Count 229 T/CUMM (130-400); Red Blood Count 3.53 MC/CUMM (3.8-5.5); Red Cell Distribution Width 15.1 % (9.3-17.3); White Blood Count 11.3 T/CUMM (4-12)
[2018-07-26 05:02] LABS: Calcium 8.6 MG/DL (8.5-10.1); Osmolality,Calculated 284.3 MOS/KG (273-304); Potassium 3.1 MMOL/L (3.5-5.1)
[2018-07-26] MEDS: ALBUTEROL/IPRATROPIUM 3 ML NEB RESP TX SCH ×5 (05:05→19:35)
[2018-07-26 05:18] LABS: Hypochromasia 1+; Lymphocytes 4 % (20-55); Platelet Estimate Adequate; Segmented Neutrophils 92 % (50-85); Total Cells Counted 100
[2018-07-26] MEDS: AZITHROMYCIN INJ 500 MG in SODIUM CHLORIDE 0.9% 250 ML IV SCH (06:30)
[2018-07-26] MEDS: ENOXAPARIN 40 MG/0.4 ML SYRINGE SUBCUT SCH (10:36)
[2018-07-26] MEDS: methylPREDNISolone SOD SUC 40 MG/1 ML VIAL IV SCH ×2 (10:36→18:45)
[2018-07-26] MEDS ORDERED: COLLAGENASE OINT 30 GM TUBE TOP PRN (13:48)
[2018-07-26] MEDS ORDERED: ACETAMINOPHEN 325 MG TABLET PO PRN (13:48)
[2018-07-26] MEDS ORDERED: ERGOCALCIFEROL 50,000 UNIT CAPSULE PO SCH (14:00)
[2018-07-26] MEDS: INSULIN REGULAR 100 UNIT/ML SUBCUT SCH (18:45)
[2018-07-26] MEDS: ERGOCALCIFEROL 50,000 UNIT CAPSULE PO SCH (22:08)
[2018-07-26] MEDS: ASPIRIN EC 81 MG TABLET PO SCH (22:08)
[2018-07-26] MEDS: CARVEDILOL 12.5 MG TABLET PO SCH (22:08)
[2018-07-26] MEDS: ATORVASTATIN 10 MG TABLET PO SCH (22:09)
[2018-07-26] MEDS: GABAPENTIN 300 MG CAPSULE PO SCH (22:09)
[2018-07-26] MEDS: amLODIPine 5 MG TABLET PO SCH (22:09)
[2018-07-26] MEDS: INSULIN GLARGINE 100 UNIT/ML SUBCUT SCH (22:09)
[2018-07-26] MEDS: FOLIC ACID 1 MG TABLET PO SCH (22:09)
[2018-07-26] MEDS: PANTOPRAZOLE 40 MG TABLET PO SCH (22:10)
[2018-07-27] MEDS: ALBUTEROL/IPRATROPIUM 3 ML NEB RESP TX SCH ×6 (00:03→19:22)
[2018-07-27] MEDS: methylPREDNISolone SOD SUC 40 MG/1 ML VIAL IV SCH ×2 (03:30→16:19)
[2018-07-27] MEDS: AZITHROMYCIN INJ 500 MG in SODIUM CHLORIDE 0.9% 250 ML IV SCH (07:19)
[2018-07-27] MEDS: FUROSEMIDE 40 MG/4 ML VIAL IV SCH (08:05)
[2018-07-27] MEDS: INSULIN REGULAR 100 UNIT/ML SUBCUT SCH ×3 (08:05→17:07)
[2018-07-27] MEDS: ENOXAPARIN 40 MG/0.4 ML SYRINGE SUBCUT SCH (08:05)
[2018-07-27] MEDS: SERTRALINE 50 MG TABLET PO SCH (08:05)
[2018-07-27] MEDS: ZINC OXIDE PASTE 113 GM TUBE TOP SCH ×2 (16:18→20:47)
[2018-07-27] MEDS: FOLIC ACID 1 MG TABLET PO SCH (20:35)
[2018-07-27] MEDS: GABAPENTIN 300 MG CAPSULE PO SCH (20:35)
[2018-07-27] MEDS: ATORVASTATIN 10 MG TABLET PO SCH (20:36)
[2018-07-27] MEDS: CARVEDILOL 12.5 MG TABLET PO SCH (20:36)
[2018-07-27] MEDS: PANTOPRAZOLE 40 MG TABLET PO SCH (20:37)
[2018-07-27] MEDS: INSULIN GLARGINE 100 UNIT/ML SUBCUT SCH (20:37)
[2018-07-27] MEDS: amLODIPine 5 MG TABLET PO SCH (20:37)
[2018-07-27] MEDS: ASPIRIN EC 81 MG TABLET PO SCH (20:39)
[2018-07-28] MEDS: ALBUTEROL/IPRATROPIUM 3 ML NEB RESP TX SCH ×7 (00:02→23:14)
[2018-07-28] MEDS: methylPREDNISolone SOD SUC 40 MG/1 ML VIAL IV SCH ×2 (03:18→15:56)
[2018-07-28] MEDS: AZITHROMYCIN INJ 500 MG in SODIUM CHLORIDE 0.9% 250 ML IV SCH (04:13)
[2018-07-28] MEDS: INSULIN REGULAR 100 UNIT/ML SUBCUT SCH ×3 (08:44→17:40)
[2018-07-28] MEDS: ENOXAPARIN 40 MG/0.4 ML SYRINGE SUBCUT SCH (08:46)
[2018-07-28] MEDS: FUROSEMIDE 40 MG/4 ML VIAL IV SCH (08:46)
[2018-07-28] MEDS: SERTRALINE 50 MG TABLET PO SCH (08:47)
[2018-07-28] MEDS: ZINC OXIDE PASTE 113 GM TUBE TOP SCH ×2 (08:56→20:15)
[2018-07-28] MEDS: PANTOPRAZOLE 40 MG TABLET PO SCH (20:13)
[2018-07-28] MEDS: GABAPENTIN 300 MG CAPSULE PO SCH (20:13)
[2018-07-28] MEDS: amLODIPine 5 MG TABLET PO SCH (20:14)
[2018-07-28] MEDS: ATORVASTATIN 10 MG TABLET PO SCH (20:14)
[2018-07-28] MEDS: FOLIC ACID 1 MG TABLET PO SCH (20:14)
[2018-07-28] MEDS: ASPIRIN EC 81 MG TABLET PO SCH (20:15)
[2018-07-28] MEDS: CARVEDILOL 12.5 MG TABLET PO SCH (20:15)
[2018-07-28] MEDS: INSULIN GLARGINE 100 UNIT/ML SUBCUT SCH (20:15)
[2018-07-29] MEDS: ALBUTEROL/IPRATROPIUM 3 ML NEB RESP TX SCH ×6 (02:17→23:09)
[2018-07-29] MEDS: methylPREDNISolone SOD SUC 40 MG/1 ML VIAL IV SCH ×2 (03:00→15:14)
[2018-07-29] MEDS: AZITHROMYCIN INJ 500 MG in SODIUM CHLORIDE 0.9% 250 ML IV SCH (04:05)
[2018-07-29 07:36] LABS: Hematocrit 32.1 VOL% (35.7-47.0); Hemoglobin 10.1 GM/DL (12.0-16.0); Immature Granulocytes % 0.7 %; Immature Granulocytes Absolute 0.04 #; Lymphocytes # 0.4 10*3/uL (1.4-4.0); Mean Corpuscular HGB Conc 31.5 GM/DL (32-36); Mean Corpuscular Hemoglobin 27 PG (27-34); Mean Corpuscular Volume 86.1 FL (87-102); Mean Platelet Volume 11.1 FL (9.6-12.0); Monocytes # 0.2 10*3/uL (0.11-0.8); Monocytes % 3.2 % (1.7-12.7); Neutrophils # 5.3 10*3/uL (1.4-7.4); Neutrophils % 89.1 % (38.7-73.9); Platelet Count 227 T/CUMM (130-400); Red Blood Count 3.73 MC/CUMM (3.8-5.5); Red Cell Distribution Width 14.6 % (9.3-17.3)
[2018-07-29 08:34] LABS: Calcium 8.5 MG/DL (8.5-10.1); Osmolality,Calculated 295.7 MOS/KG (273-304); Potassium 3.2 MMOL/L (3.5-5.1)
[2018-07-29] MEDS: INSULIN REGULAR 100 UNIT/ML SUBCUT SCH ×3 (09:01→18:04)
[2018-07-29] MEDS: FUROSEMIDE 40 MG/4 ML VIAL IV SCH (09:02)
[2018-07-29] MEDS: SERTRALINE 50 MG TABLET PO SCH (09:02)
[2018-07-29] MEDS: ZINC OXIDE PASTE 113 GM TUBE TOP SCH ×2 (09:02→20:37)
[2018-07-29] MEDS: ENOXAPARIN 40 MG/0.4 ML SYRINGE SUBCUT SCH (09:35)
[2018-07-29] MEDS: FOLIC ACID 1 MG TABLET PO SCH (20:32)
[2018-07-29] MEDS: CARVEDILOL 12.5 MG TABLET PO SCH (20:32)
[2018-07-29] MEDS: ATORVASTATIN 10 MG TABLET PO SCH (20:32)
[2018-07-29] MEDS: amLODIPine 5 MG TABLET PO SCH (20:32)
[2018-07-29] MEDS: ASPIRIN EC 81 MG TABLET PO SCH (20:32)
[2018-07-29] MEDS: PANTOPRAZOLE 40 MG TABLET PO SCH (20:33)
[2018-07-29] MEDS: GABAPENTIN 300 MG CAPSULE PO SCH (20:33)
[2018-07-29] MEDS: INSULIN GLARGINE 100 UNIT/ML SUBCUT SCH (20:33)
[2018-07-30] MEDS: ALBUTEROL/IPRATROPIUM 3 ML NEB RESP TX SCH ×6 (02:29→22:29)
[2018-07-30] MEDS: methylPREDNISolone SOD SUC 40 MG/1 ML VIAL IV SCH (02:50)
[2018-07-30] MEDS: AZITHROMYCIN INJ 500 MG in SODIUM CHLORIDE 0.9% 250 ML IV SCH (06:37)
[2018-07-30] MEDS: INSULIN REGULAR 100 UNIT/ML SUBCUT SCH ×3 (08:27→18:04)
[2018-07-30] MEDS: ENOXAPARIN 40 MG/0.4 ML SYRINGE SUBCUT SCH (08:28)
[2018-07-30] MEDS: SERTRALINE 50 MG TABLET PO SCH (08:28)
[2018-07-30] MEDS: ZINC OXIDE PASTE 113 GM TUBE TOP SCH ×2 (08:31→21:26)
[2018-07-30] MEDS: FUROSEMIDE 40 MG/4 ML VIAL IV SCH (09:18)
[2018-07-30] MEDS: AZITHROMYCIN 250 MG TABLET PO SCH (09:45)
[2018-07-30] MEDS: FUROSEMIDE 40 MG TABLET PO SCH (09:45)
[2018-07-30] MEDS: CARVEDILOL 12.5 MG TABLET PO SCH (21:26)
[2018-07-30] MEDS: FOLIC ACID 1 MG TABLET PO SCH (21:26)
[2018-07-30] MEDS: ASPIRIN EC 81 MG TABLET PO SCH (21:26)
[2018-07-30] MEDS: INSULIN GLARGINE 100 UNIT/ML SUBCUT SCH (21:26)
[2018-07-30] MEDS: GABAPENTIN 300 MG CAPSULE PO SCH (21:27)
[2018-07-30] MEDS: ATORVASTATIN 10 MG TABLET PO SCH (21:27)
[2018-07-30] MEDS: predniSONE 20 MG TABLET PO SCH (21:28)
[2018-07-30] MEDS: PANTOPRAZOLE 40 MG TABLET PO SCH (21:28)
[2018-07-30] MEDS: amLODIPine 5 MG TABLET PO SCH (21:28)
[2018-07-31] MEDS: ALBUTEROL/IPRATROPIUM 3 ML NEB RESP TX SCH ×5 (02:29→19:19)
[2018-07-31] MEDS: LACTATED RINGERS 1,000 ML IV SCH (07:30)
[2018-07-31] MEDS: INSULIN REGULAR 100 UNIT/ML SUBCUT SCH ×3 (08:41→17:40)
[2018-07-31] MEDS ORDERED: LIDOCAINE 2% 5 ML VIAL ONE (09:00)
[2018-07-31] MEDS ORDERED: PROPOFOL 200 MG/20 ML VIAL IV ONE (09:00)
[2018-07-31] MEDS: ZINC OXIDE PASTE 113 GM TUBE TOP SCH ×2 (10:50→20:41)
[2018-07-31] MEDS: FUROSEMIDE 40 MG TABLET PO SCH (10:50)
[2018-07-31] MEDS: predniSONE 20 MG TABLET PO SCH ×2 (10:51→20:40)
[2018-07-31] MEDS: AZITHROMYCIN 250 MG TABLET PO SCH (10:51)
[2018-07-31] MEDS: SERTRALINE 50 MG TABLET PO SCH (10:51)
[2018-07-31] MEDS: ENOXAPARIN 40 MG/0.4 ML SYRINGE SUBCUT SCH (10:53)
[2018-07-31] MEDS ORDERED: ONDANSETRON 4 MG/2 ML VIAL ONE (14:56)
[2018-07-31] MEDS ORDERED: FLUCONAZOLE 200 MG TABLET PO ONE (17:08)
[2018-07-31] MEDS: FOLIC ACID 1 MG TABLET PO SCH (20:40)
[2018-07-31] MEDS: ASPIRIN EC 81 MG TABLET PO SCH (20:40)
[2018-07-31] MEDS: PANTOPRAZOLE 40 MG TABLET PO SCH (20:40)
[2018-07-31] MEDS: CARVEDILOL 12.5 MG TABLET PO SCH (20:40)
[2018-07-31] MEDS: amLODIPine 5 MG TABLET PO SCH (20:40)
[2018-07-31] MEDS: GABAPENTIN 300 MG CAPSULE PO SCH (20:40)
[2018-07-31] MEDS: ATORVASTATIN 10 MG TABLET PO SCH (20:40)
[2018-07-31] MEDS: INSULIN GLARGINE 100 UNIT/ML SUBCUT SCH (20:41)
[2018-08-01] MEDS: ALBUTEROL/IPRATROPIUM 3 ML NEB RESP TX SCH ×6 (00:07→18:58)
[2018-08-01] MEDS: LACTATED RINGERS 1,000 ML IV SCH (06:54)
[2018-08-01] MEDS: FLUCONAZOLE 100 MG TABLET PO SCH (08:07)
[2018-08-01] MEDS: INSULIN REGULAR 100 UNIT/ML SUBCUT SCH ×3 (08:07→16:40)
[2018-08-01] MEDS: ZINC OXIDE PASTE 113 GM TUBE TOP SCH ×2 (08:07→20:19)
[2018-08-01] MEDS: ENOXAPARIN 40 MG/0.4 ML SYRINGE SUBCUT SCH (08:08)
[2018-08-01] MEDS: SERTRALINE 50 MG TABLET PO SCH (08:08)
[2018-08-01] MEDS: predniSONE 20 MG TABLET PO SCH ×2 (08:08→20:18)
[2018-08-01] MEDS: FUROSEMIDE 40 MG TABLET PO SCH (08:08)
[2018-08-01] MEDS: CARVEDILOL 12.5 MG TABLET PO SCH (20:16)
[2018-08-01] MEDS: GABAPENTIN 300 MG CAPSULE PO SCH (20:16)
[2018-08-01] MEDS: FOLIC ACID 1 MG TABLET PO SCH (20:16)
[2018-08-01] MEDS: amLODIPine 5 MG TABLET PO SCH (20:16)
[2018-08-01] MEDS: ATORVASTATIN 10 MG TABLET PO SCH (20:17)
[2018-08-01] MEDS: TAMSULOSIN 0.4 MG CAPSULE PO SCH (20:17)
[2018-08-01] MEDS: PANTOPRAZOLE 40 MG TABLET PO SCH (20:18)
[2018-08-01] MEDS: ASPIRIN EC 81 MG TABLET PO SCH (20:18)
[2018-08-01] MEDS: INSULIN GLARGINE 100 UNIT/ML SUBCUT SCH (20:18)
[2018-08-02] MEDS: ALBUTEROL/IPRATROPIUM 3 ML NEB RESP TX SCH ×7 (00:15→23:43)
[2018-08-02 05:52] LABS: Basophils % 0.1 % (0.0-0.8); Hematocrit 33.8 VOL% (35.7-47.0); Hemoglobin 10.4 GM/DL (12.0-16.0); Immature Granulocytes % 0.5 %; Immature Granulocytes Absolute 0.05 #; Lymphocytes # 0.7 10*3/uL (1.4-4.0); Lymphocytes % 6.3 % (21.3-54.2); Mean Corpuscular HGB Conc 30.8 GM/DL (32-36); Mean Corpuscular Hemoglobin 27 PG (27-34); Mean Corpuscular Volume 87.8 FL (87-102); Mean Platelet Volume 11.4 FL (9.6-12.0); Monocytes # 0.3 10*3/uL (0.11-0.8); Monocytes % 3.1 % (1.7-12.7); Neutrophils # 9.2 10*3/uL (1.4-7.4); Platelet Count 201 T/CUMM (130-400); Red Blood Count 3.85 MC/CUMM (3.8-5.5); Red Cell Distribution Width 14.8 % (9.3-17.3); White Blood Count 10.3 T/CUMM (4-12)
[2018-08-02 06:23] LABS: Calcium 8.3 MG/DL (8.5-10.1); Osmolality,Calculated 290.5 MOS/KG (273-304); Potassium 3.4 MMOL/L (3.5-5.1)
[2018-08-02] MEDS: LACTATED RINGERS 1,000 ML IV SCH (06:51)
[2018-08-02] MEDS: FLUCONAZOLE 100 MG TABLET PO SCH (08:21)
[2018-08-02] MEDS: SERTRALINE 50 MG TABLET PO SCH (08:21)
[2018-08-02] MEDS: INSULIN REGULAR 100 UNIT/ML SUBCUT SCH ×3 (08:21→16:44)
[2018-08-02] MEDS: ENOXAPARIN 40 MG/0.4 ML SYRINGE SUBCUT SCH (08:21)
[2018-08-02] MEDS: predniSONE 20 MG TABLET PO SCH ×2 (08:21→20:23)
[2018-08-02] MEDS: FUROSEMIDE 40 MG TABLET PO SCH (08:21)
[2018-08-02] MEDS: ZINC OXIDE PASTE 113 GM TUBE TOP SCH ×2 (08:21→20:23)
[2018-08-02] MEDS: POTASSIUM CHLORIDE 20 MEQ/15 ML UDCUP PER TUBE PRN ×3 (08:52→13:03)
[2018-08-02] MEDS: ERGOCALCIFEROL 50,000 UNIT CAPSULE PO SCH (20:22)
[2018-08-02] MEDS: LACTOBACILLUS ACIDOPHILUS/BULGARICUS CAPLET PO SCH (20:22)
[2018-08-02] MEDS: PANTOPRAZOLE 40 MG TABLET PO SCH (20:22)
[2018-08-02] MEDS: FOLIC ACID 1 MG TABLET PO SCH (20:22)
[2018-08-02] MEDS: ATORVASTATIN 10 MG TABLET PO SCH (20:22)
[2018-08-02] MEDS: GABAPENTIN 300 MG CAPSULE PO SCH (20:22)
[2018-08-02] MEDS: ASPIRIN EC 81 MG TABLET PO SCH (20:22)
[2018-08-02] MEDS: amLODIPine 5 MG TABLET PO SCH (20:22)
[2018-08-02] MEDS: INSULIN GLARGINE 100 UNIT/ML SUBCUT SCH (20:23)
[2018-08-02] MEDS: TAMSULOSIN 0.4 MG CAPSULE PO SCH (20:23)
[2018-08-03] MEDS: ALBUTEROL/IPRATROPIUM 3 ML NEB RESP TX SCH ×4 (03:15→14:00)
[2018-08-03 05:30] LABS: Basophils % 0.1 % (0.0-0.8); Hematocrit 34.8 VOL% (35.7-47.0); Hemoglobin 10.6 GM/DL (12.0-16.0); Immature Granulocytes % 0.7 %; Immature Granulocytes Absolute 0.08 #; Lymphocytes # 0.6 10*3/uL (1.4-4.0); Lymphocytes % 5.6 % (21.3-54.2); Mean Corpuscular HGB Conc 30.5 GM/DL (32-36); Mean Corpuscular Hemoglobin 27 PG (27-34); Mean Corpuscular Volume 88.5 FL (87-102); Mean Platelet Volume 10.7 FL (9.6-12.0); Monocytes # 0.4 10*3/uL (0.11-0.8); Monocytes % 3.4 % (1.7-12.7); Neutrophils # 10.1 10*3/uL (1.4-7.4); Neutrophils % 90.2 % (38.7-73.9); Platelet Count 214 T/CUMM (130-400); Red Blood Count 3.93 MC/CUMM (3.8-5.5); Red Cell Distribution Width 14.9 % (9.3-17.3); White Blood Count 11.2 T/CUMM (4-12)
[2018-08-03 05:43] LABS: Calcium 8.3 MG/DL (8.5-10.1); Osmolality,Calculated 292.5 MOS/KG (273-304); Potassium 4.3 MMOL/L (3.5-5.1)
[2018-08-03] MEDS: LACTOBACILLUS ACIDOPHILUS/BULGARICUS CAPLET PO SCH (08:38)
[2018-08-03] MEDS: INSULIN REGULAR 100 UNIT/ML SUBCUT SCH ×3 (08:39→16:28)
[2018-08-03] MEDS: FLUCONAZOLE 100 MG TABLET PO SCH (08:39)
[2018-08-03] MEDS: SERTRALINE 50 MG TABLET PO SCH (08:39)
[2018-08-03] MEDS: predniSONE 20 MG TABLET PO SCH (08:39)
[2018-08-03] MEDS: FUROSEMIDE 40 MG TABLET PO SCH (08:39)
[2018-08-03] MEDS: ZINC OXIDE PASTE 113 GM TUBE TOP SCH (08:40)
[2018-08-03] MEDS: ENOXAPARIN 40 MG/0.4 ML SYRINGE SUBCUT SCH (08:40)
[2018-08-03] MEDS ORDERED: POTASSIUM CHLORIDE 20 MEQ TABLET PO SCH (09:00)
[2018-08-03] MEDS: LACTATED RINGERS 1,000 ML IV SCH (10:29)
[2018-08-03] MEDS ORDERED: LEVOFLOXACIN 500 MG TABLET PO SCH (13:00)
[2018-08-03 16:09] VITALS: BP 145/59
== END 2018-08-03 16:52 | DRG 177 ==
LOC: N.4E 23:47 → SUATTDRO 23:47 → N.ICU 07-26 03:25 → N.2E 08-02 22:34
PROVIDERS: ADMIT Internal Medicine; ATTEND Internal Medicine

== ENCOUNTER 2018-08-13 11:04 | Inpatient (IN) ==
[2018-08-13] MEDS ORDERED: ACETAMINOPHEN 325 MG TABLET PO PRN (14:16)
[2018-08-13] MEDS ORDERED: SODIUM CHLORIDE 0.9% 1,000 ML IV ONE (14:16)
[2018-08-13] MEDS ORDERED: SODIUM BICARB INJ 100 MEQ in STERILE WATER INJ 400 ML IV PRN (14:16)
[2018-08-13] MEDS ORDERED: SODIUM PHOSPHATE INJ 30 MMOL in SODIUM CHLORIDE 0.9% 250 ML IV PRN (14:16)
[2018-08-13] MEDS ORDERED: ONDANSETRON 4 MG/2 ML VIAL IV PRN (14:16)
[2018-08-13] MEDS ORDERED: MAGNESIUM SULF RIDER 2 GM in PREMIX 1 EACH IV PRN (14:16)
[2018-08-13] MEDS ORDERED: DEXTROSE 50% 25 GM/50 ML SYRINGE IV PRN ×3 (14:16→16:14)
[2018-08-13] MEDS ORDERED: MAGNESIUM SULF RIDER 4 GM in PREMIX 1 EACH IV PRN (14:16)
[2018-08-13] MEDS ORDERED: COLLAGENASE OINT 30 GM TUBE TOP PRN (14:58)
[2018-08-13] MEDS ORDERED: methylPREDNISolone SOD SUC 40 MG/1 ML VIAL IV SCH (15:00)
[2018-08-13 15:02] LABS: Basophils % 0.2 % (0.0-0.8); Hematocrit 32.3 VOL% (35.7-47.0); Immature Granulocytes % 0.9 %; Immature Granulocytes Absolute 0.17 #; Lymphocytes # 0.7 10*3/uL (1.4-4.0); Lymphocytes % 3.5 % (21.3-54.2); Mean Corpuscular Hemoglobin 28 PG (27-34); Mean Corpuscular Volume 90.2 FL (87-102); Mean Platelet Volume 10.2 FL (9.6-12.0); Monocytes # 0.8 10*3/uL (0.11-0.8); Monocytes % 4.4 % (1.7-12.7); Neutrophils # 16.9 10*3/uL (1.4-7.4); Platelet Count 202 T/CUMM (130-400); Red Blood Count 3.58 MC/CUMM (3.8-5.5); Red Cell Distribution Width 16.8 % (9.3-17.3); White Blood Count 18.6 T/CUMM (4-12)
[2018-08-13] MEDS ORDERED: PANTOPRAZOLE 40 MG VIAL IV SCH (15:30)
[2018-08-13] MEDS ORDERED: VANCOMYCIN INJ 2,000 MG in SODIUM CHLORIDE 0.9% 500 ML IV ONE (15:30)
[2018-08-13 15:32] LABS: Alanine Aminotransferase 15 U/L (13-56); Alkaline Phosphatase 137 U/L (45-117); Aspartate Amino Transferase 26 U/L (0-37); Blood Urea Nitrogen 47 MG/DL (7-18); Calcium 7.9 MG/DL (8.5-10.1); Cholesterol 134 MG/DL (50-200); Glucose 180 MG/DL (74-106); HDL Cholesterol 38 MG/DL (40-60); Osmolality,Calculated 299.1 MOS/KG (273-304); Potassium 4.8 MMOL/L (3.5-5.1); Risk Ratio 3.53; Sodium 142 MMOL/L (136-145); Total Protein 4.9 G/DL (6.4-8.3); Triglycerides 135 MG/DL (2-150)
[2018-08-13 16:01] LABS: ABG Base Excess -0.1 MMOL/L (-2.5-2.5); ABG HCO3 24.4 MMOL/L (20-26); ABG Oxygen Saturation 91.7 % (95-100); ABG PCO2 38.9 MM HG (35-48); ABG PH 7.415 (7.35-7.45); ABG PO2 62.7 MM HG (80-95); ABG TCO2 25.6 MMOL/L (23-27); Allen Test Positive; Pt O2 Delivery Device Room Air
[2018-08-13] MEDS: SODIUM CHLORIDE 0.9% 1,000 ML IV SCH ×2 (16:09→18:32)
[2018-08-13] MEDS ORDERED: GLUCAGON 1 MG VIAL IM PRN (16:14)
[2018-08-13] MEDS: MEROPENEM 500 MG in SODIUM CHLORIDE 0.9% 100 ML IV SCH ×2 (16:15→23:43)
[2018-08-13 16:22] LABS: Hypochromasia Slight; Lymphocytes 4 % (20-55); Platelet Estimate Normal; Segmented Neutrophils 89 % (50-85); Total Cells Counted 100
[2018-08-13 17:08] LABS: Apearance,Urine CLOUDY (Clear); Bacteria,Urine Many /HPF (Few); Bilirubin,Urine Negative (Negative); Blood, Urine Moderate mg/dL (Negative); Glucose,Urine (UA) Negative (Negative); Ketones,Urine 5 mg/dL (Negative); Nitrite,Urine Negative (Negative); Protein,Urine 100 MG/DL; RBC,Urine 178 /HPF (0-4); Urine Color Yellow (Yellow); Urine Specific Gravity 1.014 (1.001-1.035); Urine Urobilinogen < 2.0 EU/DL (0.2-1.0); WBC,Urine 1380 /HPF (0-6)
[2018-08-13] MEDS ORDERED: ERGOCALCIFEROL 50,000 UNIT CAPSULE PO SCH (18:00)
[2018-08-13] MEDS ORDERED: INSULIN LISPRO 100 UNIT/ML SUBCUT SCH (18:00)
[2018-08-13] MEDS: ALBUTEROL/IPRATROPIUM 3 ML NEB RESP TX SCH (18:52)
[2018-08-13] MEDS ORDERED: SODIUM CHLORIDE 0.9% 1,000 ML IV SCH (19:17)
[2018-08-13 19:59] LABS: Calcium 7.4 MG/DL (8.5-10.1); Potassium 4.5 MMOL/L (3.5-5.1)
[2018-08-13] MEDS: ATORVASTATIN 10 MG TABLET PO SCH (21:32)
[2018-08-13] MEDS: LACTOBACILLUS ACIDOPHILUS/BULGARICUS CAPLET PO SCH (21:32)
[2018-08-13] MEDS: ENOXAPARIN 30 MG/0.3 ML SYRINGE SUBCUT SCH (21:32)
[2018-08-13] MEDS: INSULIN LISPRO 100 UNIT/ML SUBCUT SCH ×2 (21:33→23:44)
[2018-08-13] MEDS: FOLIC ACID 1 MG TABLET PO SCH (21:33)
[2018-08-13] MEDS: ASPIRIN EC 81 MG TABLET PO SCH (21:33)
[2018-08-13] MEDS: INSULIN GLARGINE 100 UNIT/ML SUBCUT SCH (21:34)
[2018-08-13 23:35] LABS: Calcium 7.3 MG/DL (8.5-10.1); Osmolality,Calculated 293.3 MOS/KG (273-304); Potassium 4.2 MMOL/L (3.5-5.1)
[2018-08-14 02:35] LABS: Basophils % 0.2 % (0.0-0.8); Eosinophils % 0.2 % (0.00-10.9); Hematocrit 29.3 VOL% (35.7-47.0); Hemoglobin 8.9 GM/DL (12.0-16.0); Immature Granulocytes % 0.6 %; Immature Granulocytes Absolute 0.07 #; Lymphocytes # 0.9 10*3/uL (1.4-4.0); Lymphocytes % 7.4 % (21.3-54.2); Mean Corpuscular HGB Conc 30.4 GM/DL (32-36); Mean Corpuscular Hemoglobin 28 PG (27-34); Mean Corpuscular Volume 92.4 FL (87-102); Mean Platelet Volume 10.6 FL (9.6-12.0); Monocytes # 0.7 10*3/uL (0.11-0.8); Monocytes % 5.7 % (1.7-12.7); Neutrophils # 9.9 10*3/uL (1.4-7.4); Neutrophils % 85.9 % (38.7-73.9); Platelet Count 152 T/CUMM (130-400); Red Blood Count 3.17 MC/CUMM (3.8-5.5); Red Cell Distribution Width 17.4 % (9.3-17.3); White Blood Count 11.6 T/CUMM (4-12)
[2018-08-14 02:48] LABS: Calcium 7.4 MG/DL (8.5-10.1); Osmolality,Calculated 299.6 MOS/KG (273-304); Potassium 3.9 MMOL/L (3.5-5.1)
[2018-08-14 02:51] LABS: Albumin 1.7 G/DL (3.4-5.0); Bilirubin,Total 0.4 MG/DL (0.2-1.0); Calcium 7.4 MG/DL (8.5-10.1); Osmolality,Calculated 301.4 MOS/KG (273-304); Potassium 3.9 MMOL/L (3.5-5.1); Total Protein 4.2 G/DL (6.4-8.3)
[2018-08-14] MEDS: INSULIN LISPRO 100 UNIT/ML SUBCUT SCH ×5 (03:59→21:07)
[2018-08-14] MEDS: MEROPENEM 500 MG in SODIUM CHLORIDE 0.9% 100 ML IV SCH ×3 (06:17→22:03)
[2018-08-14] MEDS ORDERED: SODIUM CHLORIDE 0.45% 1,000 ML IV SCH (07:17)
[2018-08-14] MEDS: ALBUTEROL/IPRATROPIUM 3 ML NEB RESP TX SCH ×4 (07:19→19:53)
[2018-08-14 07:24] LABS: Calcium 7.8 MG/DL (8.5-10.1); Osmolality,Calculated 293.8 MOS/KG (273-304); Potassium 3.9 MMOL/L (3.5-5.1)
[2018-08-14] MEDS: LACTOBACILLUS ACIDOPHILUS/BULGARICUS CAPLET PO SCH ×2 (08:58→20:57)
[2018-08-14] MEDS: INSULIN REGULAR 100 UNIT/ML SUBCUT SCH ×3 (08:58→16:15)
[2018-08-14] MEDS: SODIUM CHLORIDE 0.45% 1,000 ML IV SCH ×3 (09:04→21:09)
[2018-08-14] MEDS: SERTRALINE 50 MG TABLET PO SCH (16:14)
[2018-08-14] MEDS: PANTOPRAZOLE 40 MG TABLET PO SCH (20:56)
[2018-08-14] MEDS: FOLIC ACID 1 MG TABLET PO SCH (20:57)
[2018-08-14] MEDS: GABAPENTIN 300 MG CAPSULE PO SCH (20:57)
[2018-08-14] MEDS: ATORVASTATIN 10 MG TABLET PO SCH (20:57)
[2018-08-14] MEDS: amLODIPine 5 MG TABLET PO SCH (20:57)
[2018-08-14] MEDS: ASPIRIN EC 81 MG TABLET PO SCH (20:58)
[2018-08-14] MEDS: INSULIN GLARGINE 100 UNIT/ML SUBCUT SCH (20:58)
[2018-08-14] MEDS: ENOXAPARIN 30 MG/0.3 ML SYRINGE SUBCUT SCH (20:59)
[2018-08-15] MEDS: ALBUTEROL/IPRATROPIUM 3 ML NEB RESP TX SCH ×4 (01:34→19:35)
[2018-08-15] MEDS ORDERED: VANCOMYCIN INJ 1,500 MG in SODIUM CHLORIDE 0.9% 500 ML IV SCH (04:30)
[2018-08-15 05:08] LABS: Basophils % 0.2 % (0.0-0.8); Eosinophils # 0.1 10*3/uL (0.0-0.87); Eosinophils % 0.8 % (0.00-10.9); Hematocrit 24.5 VOL% (35.7-47.0); Hemoglobin 7.4 GM/DL (12.0-16.0); Immature Granulocytes % 0.5 %; Immature Granulocytes Absolute 0.03 #; Lymphocytes # 0.6 10*3/uL (1.4-4.0); Lymphocytes % 9.9 % (21.3-54.2); Mean Corpuscular HGB Conc 30.2 GM/DL (32-36); Mean Corpuscular Hemoglobin 28 PG (27-34); Mean Corpuscular Volume 92.8 FL (87-102); Mean Platelet Volume 10.1 FL (9.6-12.0); Monocytes # 0.4 10*3/uL (0.11-0.8); Monocytes % 5.9 % (1.7-12.7); Neutrophils # 5.2 10*3/uL (1.4-7.4); Neutrophils % 82.7 % (38.7-73.9); Platelet Count 100 T/CUMM (130-400); Red Blood Count 2.64 MC/CUMM (3.8-5.5); Red Cell Distribution Width 17.7 % (9.3-17.3); White Blood Count 6.3 T/CUMM (4-12)
[2018-08-15 05:14] LABS: Calcium 6.2 MG/DL (8.5-10.1); Osmolality,Calculated 271.2 MOS/KG (273-304); Potassium 3.3 MMOL/L (3.5-5.1)
[2018-08-15] MEDS: POTASSIUM CHLORIDE RIDER 10 MEQ in PREMIX 1 EACH IV PRN ×2 (05:43→07:15)
[2018-08-15 06:14] LABS: Anisocytosis Slight
[2018-08-15 06:15] LABS: Microcytosis 1+
[2018-08-15 06:16] LABS: Platelet Estimate Adequate
[2018-08-15] MEDS: MEROPENEM 500 MG in SODIUM CHLORIDE 0.9% 100 ML IV SCH (06:49)
[2018-08-15] MEDS: INSULIN REGULAR 100 UNIT/ML SUBCUT SCH ×3 (08:25→17:10)
[2018-08-15] MEDS: INSULIN LISPRO 100 UNIT/ML SUBCUT SCH ×4 (08:25→21:13)
[2018-08-15] MEDS: DOCUSATE SODIUM 100 MG CAPSULE PO SCH ×2 (08:26→21:19)
[2018-08-15] MEDS: LACTOBACILLUS ACIDOPHILUS/BULGARICUS CAPLET PO SCH ×2 (08:26→21:17)
[2018-08-15] MEDS: SERTRALINE 50 MG TABLET PO SCH (08:27)
[2018-08-15] MEDS: MAGNESIUM OXIDE 400 MG TABLET PO SCH ×2 (08:27→21:19)
[2018-08-15] MEDS: SULFAMETHOX/TRIMETHOPRIM 800-160 MG TABLET PO SCH ×2 (08:27→21:20)
[2018-08-15] MEDS: POTASSIUM CHLORIDE 20 MEQ TABLET PO SCH ×2 (08:27→21:19)
[2018-08-15] MEDS ORDERED: MAGNESIUM SULF INJ 3 GM in SODIUM CHLORIDE 0.9% 100 ML IV ONE (16:38)
[2018-08-15] MEDS: SODIUM CHLORIDE 0.45% 1,000 ML IV SCH (16:39)
[2018-08-15] MEDS ORDERED: ENOXAPARIN 40 MG/0.4 ML SYRINGE SUBCUT SCH (21:00)
[2018-08-15] MEDS: INSULIN GLARGINE 100 UNIT/ML SUBCUT SCH (21:16)
[2018-08-15] MEDS: ATORVASTATIN 10 MG TABLET PO SCH (21:17)
[2018-08-15] MEDS: PANTOPRAZOLE 40 MG TABLET PO SCH (21:19)
[2018-08-15] MEDS: amLODIPine 5 MG TABLET PO SCH (21:19)
[2018-08-15] MEDS: GABAPENTIN 300 MG CAPSULE PO SCH (21:19)
[2018-08-15] MEDS: FOLIC ACID 1 MG TABLET PO SCH (21:20)
[2018-08-15] MEDS: ASPIRIN EC 81 MG TABLET PO SCH (21:20)
[2018-08-16] MEDS: ALBUTEROL/IPRATROPIUM 3 ML NEB RESP TX SCH ×4 (01:48→19:25)
[2018-08-16 04:41] LABS: Basophils % 0.1 % (0.0-0.8); Eosinophils # 0.2 10*3/uL (0.0-0.87); Eosinophils % 2.6 % (0.00-10.9); Hematocrit 32.8 VOL% (35.7-47.0); Immature Granulocytes % 1.1 %; Lymphocytes # 0.8 10*3/uL (1.4-4.0); Lymphocytes % 9.2 % (21.3-54.2); Mean Corpuscular HGB Conc 30.5 GM/DL (32-36); Mean Corpuscular Hemoglobin 28 PG (27-34); Mean Corpuscular Volume 91.9 FL (87-102); Mean Platelet Volume 11.3 FL (9.6-12.0); Monocytes # 0.6 10*3/uL (0.11-0.8); Monocytes % 6.8 % (1.7-12.7); Neutrophils # 7.2 10*3/uL (1.4-7.4); Neutrophils % 80.2 % (38.7-73.9); Platelet Count 56 T/CUMM (130-400); Red Blood Count 3.57 MC/CUMM (3.8-5.5); Red Cell Distribution Width 17.3 % (9.3-17.3)
[2018-08-16 05:10] LABS: Osmolality,Calculated 268.1 MOS/KG (273-304)
[2018-08-16 05:52] LABS: Anisocytosis 1+; Hypochromasia 1+; Platelet Estimate Decreased
[2018-08-16] MEDS: INSULIN LISPRO 100 UNIT/ML SUBCUT SCH ×4 (08:19→20:43)
[2018-08-16] MEDS: INSULIN REGULAR 100 UNIT/ML SUBCUT SCH ×3 (08:20→16:55)
[2018-08-16] MEDS: POTASSIUM CHLORIDE 20 MEQ TABLET PO SCH ×2 (08:59→20:42)
[2018-08-16] MEDS: LACTOBACILLUS ACIDOPHILUS/BULGARICUS CAPLET PO SCH ×2 (08:59→20:42)
[2018-08-16] MEDS: DOCUSATE SODIUM 100 MG CAPSULE PO SCH ×2 (08:59→20:42)
[2018-08-16] MEDS: MAGNESIUM OXIDE 400 MG TABLET PO SCH ×2 (08:59→20:43)
[2018-08-16] MEDS: SERTRALINE 50 MG TABLET PO SCH (08:59)
[2018-08-16] MEDS ORDERED: DOXYCYCLINE HYCLATE 100 MG CAPSULE PO SCH (09:00)
[2018-08-16 09:21] LABS: Basophils % 0.1 % (0.0-0.8); Eosinophils # 0.3 10*3/uL (0.0-0.87); Hemoglobin 10.1 GM/DL (12.0-16.0); Immature Granulocytes % 0.2 %; Immature Granulocytes Absolute 0.02 #; Lymphocytes # 0.6 10*3/uL (1.4-4.0); Lymphocytes % 7.3 % (21.3-54.2); Mean Corpuscular HGB Conc 30.6 GM/DL (32-36); Mean Corpuscular Hemoglobin 28 PG (27-34); Mean Corpuscular Volume 90.9 FL (87-102); Mean Platelet Volume 10.1 FL (9.6-12.0); Monocytes # 0.6 10*3/uL (0.11-0.8); Monocytes % 6.8 % (1.7-12.7); Neutrophils # 6.8 10*3/uL (1.4-7.4); Neutrophils % 82.6 % (38.7-73.9); Platelet Count 127 T/CUMM (130-400); Red Blood Count 3.63 MC/CUMM (3.8-5.5); Red Cell Distribution Width 17.2 % (9.3-17.3); White Blood Count 8.2 T/CUMM (4-12)
[2018-08-16 10:12] LABS: Folate > 24.0 NG/ML (5.4-24.0); Vitamin B12 1113 PG/ML (211-911)
[2018-08-16 10:35] LABS: Sedimentation Rate-Westergren 40 MM/HR (0-30)
[2018-08-16] MEDS: ERTAPENEM 1,000 MG in SODIUM CHLORIDE 0.9% 100 ML IV SCH (14:00)
[2018-08-16] MEDS: FOLIC ACID 1 MG TABLET PO SCH (20:42)
[2018-08-16] MEDS: GABAPENTIN 300 MG CAPSULE PO SCH (20:42)
[2018-08-16] MEDS: ASPIRIN EC 81 MG TABLET PO SCH (20:42)
[2018-08-16] MEDS: amLODIPine 5 MG TABLET PO SCH (20:42)
[2018-08-16] MEDS: ATORVASTATIN 10 MG TABLET PO SCH (20:43)
[2018-08-16] MEDS: PANTOPRAZOLE 40 MG TABLET PO SCH (20:43)
[2018-08-16] MEDS ORDERED: INSULIN GLARGINE 100 UNIT/ML SUBCUT SCH (21:00)
[2018-08-17] MEDS: ALBUTEROL/IPRATROPIUM 3 ML NEB RESP TX SCH ×3 (00:24→13:44)
[2018-08-17 04:57] LABS: Basophils % 0.3 % (0.0-0.8); Eosinophils # 0.3 10*3/uL (0.0-0.87); Eosinophils % 4.9 % (0.00-10.9); Hematocrit 29.7 VOL% (35.7-47.0); Hemoglobin 9.1 GM/DL (12.0-16.0); Immature Granulocytes % 0.6 %; Immature Granulocytes Absolute 0.04 #; Lymphocytes # 0.6 10*3/uL (1.4-4.0); Mean Corpuscular HGB Conc 30.6 GM/DL (32-36); Mean Corpuscular Hemoglobin 28 PG (27-34); Mean Corpuscular Volume 89.7 FL (87-102); Mean Platelet Volume 10.3 FL (9.6-12.0); Monocytes # 0.5 10*3/uL (0.11-0.8); Monocytes % 7.5 % (1.7-12.7); Neutrophils # 4.8 10*3/uL (1.4-7.4); Neutrophils % 76.7 % (38.7-73.9); Platelet Count 117 T/CUMM (130-400); Red Blood Count 3.31 MC/CUMM (3.8-5.5); Red Cell Distribution Width 17.4 % (9.3-17.3); White Blood Count 6.3 T/CUMM (4-12)
[2018-08-17 05:24] LABS: Calcium 7.7 MG/DL (8.5-10.1); Osmolality,Calculated 278.1 MOS/KG (273-304); Potassium 5.3 MMOL/L (3.5-5.1)
[2018-08-17] MEDS ORDERED: DEXTROSE 50% 25 GM/50 ML VIAL IV PRN ×2 (08:00)
[2018-08-17] MEDS: INSULIN REGULAR 100 UNIT/ML SUBCUT SCH ×2 (08:35→12:12)
[2018-08-17] MEDS: INSULIN LISPRO 100 UNIT/ML SUBCUT SCH ×2 (08:35→12:11)
[2018-08-17] MEDS: DOCUSATE SODIUM 100 MG CAPSULE PO SCH (08:37)
[2018-08-17] MEDS: MAGNESIUM OXIDE 400 MG TABLET PO SCH (08:37)
[2018-08-17] MEDS: LACTOBACILLUS ACIDOPHILUS/BULGARICUS CAPLET PO SCH (08:37)
[2018-08-17] MEDS: SERTRALINE 50 MG TABLET PO SCH (08:37)
[2018-08-17 08:45] LABS: Hemoglobin A1 (Alkaline) 97.2 % (96.5-98.5); Hemoglobin A2 (Alkaline) 2.8 % (1.5-3.5)
[2018-08-17] MEDS ORDERED: SODIUM POLYSTYRENE SULFATE 15 GM/60 ML BOTTLE PO STA (08:48)
[2018-08-17] MEDS ORDERED: FLUCONAZOLE 200 MG TABLET PO ONE (08:55)
[2018-08-17] MEDS ORDERED: FUROSEMIDE 40 MG/4 ML VIAL IV ONE (09:36)
[2018-08-17] MEDS: ERTAPENEM 1,000 MG in SODIUM CHLORIDE 0.9% 100 ML IV SCH (11:59)
[2018-08-17 16:29] VITALS: BP 129/53
== END 2018-08-17 17:17 | DRG 682 ==
LOC: SUATTDRO 13:19 → N.CC 13:19 → N.5E 08-15 16:59
PROVIDERS: ADMIT Internal Medicine; ATTEND Internal Medicine

== ENCOUNTER 2018-08-20 18:38 | Observation (INO) ==
[2018-08-20 20:01] LABS: Basophils % 0.3 % (0.0-0.8); Eosinophils # 0.2 10*3/uL (0.0-0.87); Eosinophils % 3.6 % (0.00-10.9); Hematocrit 28.7 VOL% (35.7-47.0); Hemoglobin 8.7 GM/DL (12.0-16.0); Immature Granulocytes % 0.3 %; Immature Granulocytes Absolute 0.02 #; Lymphocytes # 0.9 10*3/uL (1.4-4.0); Mean Corpuscular HGB Conc 30.3 GM/DL (32-36); Mean Corpuscular Hemoglobin 28 PG (27-34); Mean Platelet Volume 10.6 FL (9.6-12.0); Monocytes # 0.6 10*3/uL (0.11-0.8); Monocytes % 9.5 % (1.7-12.7); Neutrophils # 4.4 10*3/uL (1.4-7.4); Neutrophils % 72.3 % (38.7-73.9); Platelet Count 198 T/CUMM (130-400); Red Blood Count 3.12 MC/CUMM (3.8-5.5); Red Cell Distribution Width 17.3 % (9.3-17.3); White Blood Count 6.1 T/CUMM (4-12)
[2018-08-20 20:08] LABS: INR 0.9
[2018-08-20 20:17] LABS: Apearance,Urine CLOUDY (Clear); Bilirubin,Urine Negative (Negative); Blood, Urine Small mg/dL (Negative); Glucose,Urine (UA) >=500 mg/dL (Negative); Ketones,Urine 20 mg/dL (Negative); Nitrite,Urine Negative (Negative); Protein,Urine 30 MG/DL; RBC,Urine 4 /HPF (0-4); Squamous Epithelial Cell,Urine Occasional /HPF (0-10); Urine Color Yellow (Yellow); Urine Specific Gravity 1.009 (1.001-1.035); Urine Urobilinogen < 2.0 EU/DL (0.2-1.0); WBC,Urine 200 /HPF (0-6)
[2018-08-20 20:28] LABS: Alanine Aminotransferase 11 U/L (13-56); Albumin 1.8 G/DL (3.4-5.0); Alkaline Phosphatase 140 U/L (45-117); Aspartate Amino Transferase 6 U/L (0-37); Bilirubin,Total < 0.39 MG/DL (0.2-1.0); Blood Urea Nitrogen 32 MG/DL (7-18); Calcium 8.1 MG/DL (8.5-10.1); Glucose 245 MG/DL (74-106); Potassium 4.6 MMOL/L (3.5-5.1); Sodium 136 MMOL/L (136-145); Total Protein 4.8 G/DL (6.4-8.3)
[2018-08-20] MEDS ORDERED: SODIUM CHLORIDE 0.9% 1,000 ML IV STA (21:05)
[2018-08-20] MEDS ORDERED: PIPERACILLIN/TAZOBACTAM 3,375 MG in SODIUM CHLORIDE 0.9% 100 ML IV ONE (21:07)
[2018-08-20] MEDS ORDERED: PIPERACILLIN/TAZOBACTAM 3,375 MG VIAL IV ONE (21:17)
[2018-08-20] MEDS ORDERED: ERTAPENEM 1,000 MG VIAL IV SCH (23:46)
[2018-08-20] MEDS ORDERED: COLLAGENASE OINT 30 GM TUBE TOP PRN (23:46)
[2018-08-20] MEDS ORDERED: BISACODYL 10 MG SUPP RECTAL PRN (23:46)
[2018-08-20] MEDS ORDERED: MAGNESIUM HYDROXIDE SUSP 30 ML UDCUP PO PRN (23:46)
[2018-08-21] MEDS: amLODIPine 10 MG TABLET PO SCH ×2 (00:22→21:32)
[2018-08-21] MEDS: PANTOPRAZOLE 40 MG TABLET PO SCH ×2 (00:22→21:28)
[2018-08-21] MEDS: ATORVASTATIN 10 MG TABLET PO SCH ×2 (00:23→21:28)
[2018-08-21] MEDS: ASPIRIN EC 81 MG TABLET PO SCH ×2 (00:24→21:28)
[2018-08-21] MEDS ORDERED: ONDANSETRON 4 MG/2 ML VIAL IV PRN (00:40)
[2018-08-21] MEDS ORDERED: GLUCAGON 1 MG VIAL IM PRN (01:38)
[2018-08-21] MEDS ORDERED: DEXTROSE 50% 25 GM/50 ML SYRINGE IV PRN (01:38)
[2018-08-21] MEDS: SODIUM CHLORIDE 0.9% 1,000 ML IV SCH ×2 (01:45→16:28)
[2018-08-21] MEDS: INSULIN REGULAR 100 UNIT/ML SUBCUT SCH ×6 (02:09→21:27)
[2018-08-21] MEDS: ALBUTEROL/IPRATROPIUM 3 ML NEB RESP TX SCH ×4 (02:15→19:31)
[2018-08-21 04:48] LABS: Eosinophils # 0.1 10*3/uL (0.0-0.87); Eosinophils % 1.1 % (0.00-10.9); Hematocrit 27.6 VOL% (35.7-47.0); Immature Granulocytes % 0.4 %; Immature Granulocytes Absolute 0.02 #; Lymphocytes # 0.5 10*3/uL (1.4-4.0); Lymphocytes % 8.4 % (21.3-54.2); Mean Corpuscular Hemoglobin 28 PG (27-34); Mean Corpuscular Volume 95.8 FL (87-102); Monocytes # 0.3 10*3/uL (0.11-0.8); Monocytes % 6.2 % (1.7-12.7); Neutrophils # 4.6 10*3/uL (1.4-7.4); Neutrophils % 83.9 % (38.7-73.9); Platelet Count 190 T/CUMM (130-400); Red Blood Count 2.88 MC/CUMM (3.8-5.5); Red Cell Distribution Width 17.6 % (9.3-17.3); White Blood Count 5.5 T/CUMM (4-12)
[2018-08-21] MEDS ORDERED: PIPERACILLIN/TAZOBACTAM 3,375 MG in SODIUM CHLORIDE 0.9% 100 ML IV SCH (05:00)
[2018-08-21] MEDS ORDERED: INSULIN LISPRO 100 UNIT/ML SUBCUT SCH (07:30)
[2018-08-21 07:37] LABS: % Iron Saturation 30.1 % (18-50)
[2018-08-21] MEDS: INSULIN NPH 100 UNIT/ML SUBCUT SCH ×2 (08:54→16:42)
[2018-08-21] MEDS ORDERED: INSULIN GLARGINE 100 UNIT/ML SUBCUT SCH (09:00)
[2018-08-21] MEDS ORDERED: FUROSEMIDE 20 MG TABLET PO SCH (09:00)
[2018-08-21] MEDS: ERTAPENEM 1,000 MG in SODIUM CHLORIDE 0.9% 100 ML IV SCH (10:36)
[2018-08-21] MEDS: SERTRALINE 50 MG TABLET PO SCH (16:27)
[2018-08-21] MEDS: FLUCONAZOLE 100 MG TABLET PO SCH (16:28)
[2018-08-22] MEDS: SODIUM CHLORIDE 0.9% 1,000 ML IV SCH ×5 (00:59→21:20)
[2018-08-22 05:52] LABS: Basophils % 0.6 % (0.0-0.8); Eosinophils # 0.2 10*3/uL (0.0-0.87); Eosinophils % 4.5 % (0.00-10.9); Hematocrit 25.6 VOL% (35.7-47.0); Hemoglobin 7.8 GM/DL (12.0-16.0); Immature Granulocytes % 0.6 %; Immature Granulocytes Absolute 0.02 #; Lymphocytes # 0.8 10*3/uL (1.4-4.0); Mean Corpuscular HGB Conc 30.5 GM/DL (32-36); Mean Corpuscular Hemoglobin 28 PG (27-34); Mean Corpuscular Volume 91.8 FL (87-102); Mean Platelet Volume 10.3 FL (9.6-12.0); Monocytes # 0.4 10*3/uL (0.11-0.8); Monocytes % 12.7 % (1.7-12.7); Neutrophils # 1.9 10*3/uL (1.4-7.4); Neutrophils % 58.6 % (38.7-73.9); Platelet Count 169 T/CUMM (130-400); Red Blood Count 2.79 MC/CUMM (3.8-5.5); Red Cell Distribution Width 17.6 % (9.3-17.3); White Blood Count 3.3 T/CUMM (4-12)
[2018-08-22 06:11] LABS: Calcium 7.6 MG/DL (8.5-10.1); Potassium 4.4 MMOL/L (3.5-5.1)
[2018-08-22] MEDS: ALBUTEROL/IPRATROPIUM 3 ML NEB RESP TX SCH ×6 (07:26→23:45)
[2018-08-22] MEDS: ERTAPENEM 1,000 MG in SODIUM CHLORIDE 0.9% 100 ML IV SCH (08:21)
[2018-08-22] MEDS: SERTRALINE 50 MG TABLET PO SCH (08:25)
[2018-08-22] MEDS: FLUCONAZOLE 100 MG TABLET PO SCH (08:25)
[2018-08-22] MEDS: INSULIN NPH 100 UNIT/ML SUBCUT SCH ×2 (08:26→17:00)
[2018-08-22] MEDS: INSULIN REGULAR 100 UNIT/ML SUBCUT SCH ×4 (08:26→21:19)
[2018-08-22] MEDS: ATORVASTATIN 10 MG TABLET PO SCH (20:05)
[2018-08-22] MEDS: ASPIRIN EC 81 MG TABLET PO SCH (20:05)
[2018-08-22] MEDS: amLODIPine 10 MG TABLET PO SCH (20:05)
[2018-08-22] MEDS: PANTOPRAZOLE 40 MG TABLET PO SCH (20:05)
[2018-08-23] MEDS: SODIUM CHLORIDE 0.9% 1,000 ML IV SCH ×2 (01:25→08:45)
[2018-08-23] MEDS: ALBUTEROL/IPRATROPIUM 3 ML NEB RESP TX SCH ×6 (04:00→23:06)
[2018-08-23 06:55] LABS: Calcium 7.7 MG/DL (8.5-10.1); Osmolality,Calculated 284.4 MOS/KG (273-304); Potassium 3.9 MMOL/L (3.5-5.1)
[2018-08-23] MEDS: ERTAPENEM 1,000 MG in SODIUM CHLORIDE 0.9% 100 ML IV SCH (08:35)
[2018-08-23] MEDS: SERTRALINE 50 MG TABLET PO SCH (08:36)
[2018-08-23] MEDS: INSULIN NPH 100 UNIT/ML SUBCUT SCH ×2 (08:36→16:51)
[2018-08-23] MEDS: FLUCONAZOLE 100 MG TABLET PO SCH (08:36)
[2018-08-23] MEDS: INSULIN REGULAR 100 UNIT/ML SUBCUT SCH ×4 (08:37→21:18)
[2018-08-23] MEDS: POLYETHYLENE GLYCOL POWDER 17 GM PACK PO SCH (10:33)
[2018-08-23] MEDS: amLODIPine 10 MG TABLET PO SCH (20:30)
[2018-08-23] MEDS: ASPIRIN EC 81 MG TABLET PO SCH (20:31)
[2018-08-23] MEDS: ATORVASTATIN 10 MG TABLET PO SCH (20:31)
[2018-08-23] MEDS: PANTOPRAZOLE 40 MG TABLET PO SCH (20:31)
[2018-08-24] MEDS: SODIUM CHLORIDE 0.9% 1,000 ML IV SCH ×2 (02:11→02:38)
[2018-08-24] MEDS: ALBUTEROL/IPRATROPIUM 3 ML NEB RESP TX SCH ×6 (03:49→22:00)
[2018-08-24 05:16] LABS: Basophils % 0.3 % (0.0-0.8); Eosinophils # 0.2 10*3/uL (0.0-0.87); Eosinophils % 3.8 % (0.00-10.9); Hematocrit 28.7 VOL% (35.7-47.0); Hemoglobin 8.8 GM/DL (12.0-16.0); Immature Granulocytes % 0.5 %; Immature Granulocytes Absolute 0.02 #; Lymphocytes # 0.7 10*3/uL (1.4-4.0); Lymphocytes % 18.4 % (21.3-54.2); Mean Corpuscular HGB Conc 30.7 GM/DL (32-36); Mean Corpuscular Hemoglobin 28 PG (27-34); Mean Platelet Volume 10.2 FL (9.6-12.0); Monocytes # 0.4 10*3/uL (0.11-0.8); Monocytes % 9.6 % (1.7-12.7); Neutrophils # 2.7 10*3/uL (1.4-7.4); Neutrophils % 67.4 % (38.7-73.9); Platelet Count 198 T/CUMM (130-400); Red Blood Count 3.12 MC/CUMM (3.8-5.5); Red Cell Distribution Width 17.5 % (9.3-17.3)
[2018-08-24 05:26] LABS: Calcium 8.1 MG/DL (8.5-10.1); Potassium 3.7 MMOL/L (3.5-5.1)
[2018-08-24] MEDS: INSULIN NPH 100 UNIT/ML SUBCUT SCH ×2 (09:15→17:36)
[2018-08-24] MEDS: POLYETHYLENE GLYCOL POWDER 17 GM PACK PO SCH (09:15)
[2018-08-24] MEDS: FLUCONAZOLE 100 MG TABLET PO SCH (09:15)
[2018-08-24] MEDS: SERTRALINE 50 MG TABLET PO SCH (09:15)
[2018-08-24] MEDS: INSULIN REGULAR 100 UNIT/ML SUBCUT SCH ×4 (09:16→22:01)
[2018-08-24] MEDS: ATORVASTATIN 10 MG TABLET PO SCH (20:08)
[2018-08-24] MEDS: ASPIRIN EC 81 MG TABLET PO SCH (20:08)
[2018-08-24] MEDS: amLODIPine 10 MG TABLET PO SCH (20:09)
[2018-08-24] MEDS: PANTOPRAZOLE 40 MG TABLET PO SCH (20:09)
[2018-08-25] MEDS: ALBUTEROL/IPRATROPIUM 3 ML NEB RESP TX SCH ×3 (02:35→11:34)
[2018-08-25] MEDS: FLUCONAZOLE 100 MG TABLET PO SCH (09:03)
[2018-08-25] MEDS: POLYETHYLENE GLYCOL POWDER 17 GM PACK PO SCH (09:03)
[2018-08-25] MEDS: SERTRALINE 50 MG TABLET PO SCH (09:04)
[2018-08-25] MEDS: INSULIN NPH 100 UNIT/ML SUBCUT SCH (09:04)
[2018-08-25] MEDS: INSULIN REGULAR 100 UNIT/ML SUBCUT SCH ×2 (09:05→11:57)
[2018-08-25 11:51] VITALS: BP 137/63
== END 2018-08-25 12:45 ==
LOC: EDBD → EDUNIT# → N.EDINP 18:38 → N.ED 18:38 → SUATTDRO 22:06 → N.2E 22:26
PROVIDERS: ADMIT Internal Medicine; ATTEND Hospitalist